=== PATIENT | male | born 1960 | race Caucasian/White ===

== ENCOUNTER 2023-08-31 19:10 | Emergency (ER) | payer BC, SELFPAY ==
[2023-08-31 19:17] VITALS: BP 152/101; PULSE 77; TEMP 36.8; O2SAT 99; BMI 22.6
--- NOTE | 2023-08-31 19:30 | CT_ITS ---
The [address] [address] Patient Name: JESÚS COYLE MRN: [id number] date: 1960 Sex: M Assigned Patient Location: ER Current Patient Location: ER Accession/Order Number: [id number] Exam Date: 08/31/2023 20:30 Report Date: 08/31/2023 21:20 At the request of: VIRAL MENDEZ Procedure: CT abdomen pelvis w con EXAM: CT abdomen pelvis w con HISTORY: Incarcerated hernia COMPARISON: None. TECHNIQUE: Multiple axial images of the abdomen and pelvis are obtained following the administration of IV contrast material. Coronal and sagittal reformatted sequences are submitted for review FINDINGS: Posterior right lung base atelectasis versus small infiltrate is seen. The heart size is normal. The liver, gallbladder, spleen, pancreas and bilateral adrenal glands appear unremarkable. Low densities are seen in the kidneys bilaterally, which are too small to definitively characterize on this examination, but which CT appearance can be seen with cystic structures. Bilateral kidneys otherwise demonstrate normal size, morphology and contrast enhancement. There is no evidence for hydronephrosis bilaterally. Left inguinal hernia is seen with herniation of the proximal sigmoid colon, as well as small volume of mesenteric fat. Nonobstructive bowel pattern is seen. Normal-appearing appendix is visualized. Large volume of stool is seen in the colon. No significant bowel wall thickening is seen. Mild wall thickening with mucosal enhancement of the distal gastric body is suspected, which may represent mild gastritis. Please correlate clinically. The vascular structures demonstrate normal caliber and contrast enhancement. Aortic and iliac arterial calcification is seen without aneurysmal dilatation. The prostate gland measures approximately 4 cm and 5.1 cm in AP and transverse diameter, respectively. Left hydrocele may be seen. This finding can be better evaluated with a scrotal ultrasound, as clinically indicated. No destructive osseous lesion is seen. CT/CT abdomen pelvis w con IMPRESSION: Left inguinal hernia is seen with herniation of the proximal sigmoid colon, as well as small volume of mesenteric fat. There is no CT evidence for bowel obstruction. No significant bowel wall thickening is seen. No significant stranding of the herniated mesenteric fat is seen. However, clinical correlation and possible follow-up imaging may be considered. Mild wall thickening with mucosal enhancement of the distal gastric body is suspected, which may represent mild gastritis. Please correlate clinically. Posterior right lung base atelectasis versus small infiltrate. Left hydrocele may be seen. This finding can be better evaluated with a scrotal ultrasound, as clinically indicated. Electronically authenticated by: KEVIN BURGOS Date: 08/31/2023 21:20
--- NOTE | 2023-08-31 19:31 | ED_ITS ---
HPI - Abdominal Pain General Chief Complaint: Abdominal Pain Stated Complaint: HERNIA Time Seen by Provider: 08/31/23 19:13 Source: patient Mode of arrival: walk-in Limitations: no limitations History of Present Illness HPI narrative: 62-year-old male presents to the emergency department for hernia that will not go back in place. He has had this left inguinal hernia for about a year and has not had it looked at by his surgeon. In the past he has always been able to push it back in place but this time it has been out for 3 days. No fever or vomiting. The pain is moderate and continuous. Related Data Home Medications ?Medication ?Instructions ?Recorded ?Confirmed loratadine 10 mg tablet (Allergy 10 mg PO DAILY 08/31/23 08/31/23 Relief (loratadine)) Allergies Allergy/AdvReac Type Severity Reaction Status Date / Time bee pollen Allergy Intermediate swelling Verified 08/31/23 19:21 Review of Systems ROS Narrative A ten point review of systems is negative except as noted above. Exam Narrative Exam Narrative: Nurses note and vital signs reviewed and patient is not hypoxic. General: The patient appears well and in no apparent distress. Patient is resting comfortably on cart. Skin: Warm, dry, no pallor noted. There is no rash noted. Head: Normocephalic, atraumatic Eye: Normal conjunctiva, no drainage Ears, Nose, Mouth, and Throat: oral mucosa is moist. Nares patent. Cardiovascular: Regular Rate and Rhythm Respiratory: Patient is in no distress, no accessory muscle use, lungs are clear to auscultation, no wheezing, rales or rhonchi Back: non-tender GI: Left inguinal hernia is present. Gentle palpation does not result in reduction. The rest of his abdomen is nontender and nondistended Musculoskeletal: The patient has no evidence of calf tenderness, no pitting edema, symmetrical pulses noted bilaterally Neurological: A&O, normal speech Psychiatric: Cooperative Constitutional Vital Signs, click to edit/add: Last Vital Signs Temp 98.3 F 08/31/23 19:17 Pulse 77 08/31/23 19:17 Resp 18 08/31/23 19:17 BP 152/101 H 08/31/23 19:17 Pulse Ox 100 08/31/23 21:15 O2 Del Method Nasal Cannula 08/31/23 21:15 O2 Flow Rate 2 08/31/23 21:15 Course Vital Signs Vital signs: Vital Signs Temperature 98.3 F 08/31/23 19:17 Pulse Rate 77 08/31/23 19:17 Respiratory Rate 18 08/31/23 19:17 Blood Pressure 152/101 H 08/31/23 19:17 Pulse Oximetry 99 08/31/23 19:17 Oxygen Delivery Method Room Air 08/31/23 19:17 Temperature 98.3 F 08/31/23 19:17 Pulse Rate 77 08/31/23 19:17 Respiratory Rate 18 08/31/23 19:17 Blood Pressure 152/101 H 08/31/23 19:17 Pulse Oximetry 100 08/31/23 21:15 Oxygen Delivery Method Nasal Cannula 08/31/23 21:15 Oxygen Delivery Flow Rate 2 08/31/23 21:15 MDM - Abdominal Pain MDM Narrative Medical decision making narrative: The patient presented with an incarcerated inguinal hernia, left side. It has been reduced and he will follow-up with general surgery. Findings are discussed with the patient and his . There is no evidence of strangulation. The following procedure was performed by me. The patient was given IV etomidate for sedation which resulted in an excellent level of sedation. He was maintained on oxygen and CO2 monitor and had no desaturations or significant change in his CO2. There were no complications. During conscious sedation manual pressure was utilized to reduce the incarcerated hernia, successfully. He feels much better after waking up and he is fully awake and alert and oriented. He is now ambulatory and able to be discharged home. The patient will follow-up with Dr. Salcido. Differential Diagnosis Differential diagnosis: Likely abdominal pain, small bowel obstruction and other (Incarcerated hernia, strangulated hernia) Lab Data Attestation: I reviewed the patient's lab results. Labs: Lab Results 08/31/23 Range/Units 19:40 WBC 10.9 (4.0-11.0) 10^3/uL RBC 4.68 L (4.70-6.10) 10^6/uL Hgb 14.9 (14.0-18.0) g/dL Hct 46.0 (42.0-54.0) % MCV 98.3 H (80.0-94.0) fL MCH 31.8 (25.9-34.0) pg MCHC 32.4 (29.9-35.2) g/dL RDW 14.1 (11.0-15.0) % Plt Count 314 (150-450) 10^3/uL MPV 10.2 (9.5-13.5) fL Neut % (Auto) 66.8 (43.0-75.0) % Lymph % (Auto) 26.5 (20.5-60.0) % [place] % (Auto) 4.5 (1.7-12.0) % Eos % (Auto) 1.3 (0.9-7.0) % Baso % (Auto) 0.7 (0.2-2.0) % Neut # (Auto) 7.3 H (1.4-6.5) 10^3/uL Lymph # (Auto) 2.9 (1.2-3.8) 10^3/uL [place] # (Auto) 0.5 (0.3-0.8) 10^3/uL Eos # (Auto) 0.1 (0.0-0.7) 10^3/uL Baso # (Auto) 0.1 (0.0-0.1) 10^3/uL Abs Immat Gran (auto) 0.02 (0.00-0.03) 10^3/uL Imm/Tot Granulo (auto) 0.2 (0.0-0.5) % Sodium 137 (136-145) mmol/L Potassium 3.8 (3.5-5.1) mmol/L Chloride 102 (98-107) mmol/L Carbon Dioxide 25.8 (21.0-32.0) mmol/L Anion Gap 13.0 BUN 11.0 (7.0-18.0) mg/dL Creatinine 0.91 (0.70-1.30) mg/dL Est GFR ( Amer) >60 (>=60) Est GFR (Non-Af Amer) >60 (>=60) BUN/Creatinine Ratio 12.1 Glucose 135 H (74-106) mg/dL Lactate 1.5 (0.4-2.0) mmol/L Calcium 9.0 (8.5-10.1) mg/dL Imaging Data CT scan - abdomen: Radiologist's impression: ITS Impressions Abdomen/Pelvis CT 08/31/23 19:30 IMPRESSION: Left inguinal hernia is seen with herniation of the proximal sigmoid colon, as well as small volume of mesenteric fat. There is no CT evidence for bowel obstruction. No significant bowel wall thickening is seen. No significant stranding of the herniated mesenteric fat is seen. However, clinical correlation and possible follow-up imaging may be considered. Mild wall thickening with mucosal enhancement of the distal gastric body is suspected, which may represent mild gastritis. Please correlate clinically. Posterior right lung base atelectasis versus small infiltrate. Left hydrocele may be seen. This finding can be better evaluated with a scrotal ultrasound, as clinically indicated. Electronically authenticated by: KEVIN BURGOS Date: 08/31/2023 21:20 Discharge Plan Discharge Stand Alone Forms: Portal Instructions Chief Complaint: Abdominal Pain Clinical Impression: Incarcerated inguinal hernia Patient Disposition: Home, Self-Care Time of Disposition Decision: 21:38 Condition: Good Mode of Transportation: Private Vehicle Prescriptions / Home Meds: No Action loratadine [Allergy Relief (loratadine)] 10 mg tablet 10 mg PO DAILY Print Language: Guamanian Instructions: Inguinal Hernia (ED), Moderate Sedation (ED) Referrals: Physician,Non-Staff, [Primary Care Provider] - 1 week Josafat Salcido MD [Physician] - 1 week
[2023-08-31 19:37] VITALS: PULSE 77
[2023-08-31 19:49] LABS: Basophils Absolute Auto 0.1 10^3/uL (0.0-0.1); Basophils Percent Auto 0.7 % (0.2-2.0); Eosinophils Absolute Auto 0.1 10^3/uL (0.0-0.7); Eosinophils Percent Auto 1.3 % (0.9-7.0); Hemoglobin 14.9 g/dL (14.0-18.0); Immature Granulocytes Abs Auto 0.02 10^3/uL (0.00-0.03); Immature Granulocytes Pct Auto 0.2 % (0.0-0.5); Lymphocytes Absolute Auto 2.9 10^3/uL (1.2-3.8); Lymphocytes Percent Auto 26.5 % (20.5-60.0); Mean Corpuscular HGB Conc 32.4 g/dL (29.9-35.2); Mean Corpuscular Hemoglobin 31.8 pg (25.9-34.0); Mean Corpuscular Volume 98.3 fL (80.0-94.0); Mean Platelet Volume 10.2 fL (9.5-13.5); Monocytes Absolute Auto 0.5 10^3/uL (0.3-0.8); Monocytes Percent Auto 4.5 % (1.7-12.0); Neutrophils Absolute Auto 7.3 10^3/uL (1.4-6.5); Neutrophils Percent Auto 66.8 % (43.0-75.0); Platelet Count 314 10^3/uL (150-450); Red Blood Count 4.68 10^6/uL (4.70-6.10); Red Cell Distribution Width 14.1 % (11.0-15.0); White Blood Count 10.9 10^3/uL (4.0-11.0)
[2023-08-31 20:07] LABS: Lactate/Lactic Acid 1.5 mmol/L (0.4-2.0)
[2023-08-31 20:10] LABS: BUN Creatinine Ratio 12.1; Carbon Dioxide 25.8 mmol/L (21.0-32.0); Chloride 102 mmol/L (98-107); Estimated GFR (African America >60 (>=60); Estimated GFR (Non-African Ame >60 (>=60); Glucose 135 mg/dL (74-106); Potassium 3.8 mmol/L (3.5-5.1); Sodium 137 mmol/L (136-145)
[2023-08-31 21:10] VITALS: BP 181/87; PULSE 77; O2SAT 100
[2023-08-31 21:15] VITALS: O2SAT 100
[2023-08-31] MEDS: ETOMIDATE 20 MG/10 ML VIAL IVP (21:26)
[2023-08-31 21:40] VITALS: BP 180/90; PULSE 87; O2SAT 96
== END 2023-08-31 21:58 | disposition home or self-care (01) ==
PROVIDERS: Emergency Provider Emergency Medicine
DX: K40.30 Unilateral inguinal hernia, with obstruction, without gangrene, not specified as recurrent (principal)
CPT/HCPCS: 36415; 74177; 80048; 83605; 85025; 96374; 99152; 99285; Q9967

== ENCOUNTER 2023-10-08 14:05 | Outpatient (OUT) | payer BC, SELFPAY ==
--- NOTE | 2023-10-08 14:23 | ECG_ITS ---
The [facility] Test Date: 2023-10-08 Pat Name: JESÚS COYLE Department: Room: - Gender: Male Translator: : 1960 Requested By: ALANA BERMUDEZ Order Number: [id number] Reading MD: RENATA WAGGONER Measurements Intervals [place] Rate: 72 P: 61 CO: 134 QRS: 57 QRSD: 105 T: 57 QT: 375 QTc: 411 Interpretive Statements SINUS RHYTHM INCOMPLETE RIGHT BUNDLE BRANCH BLOCK [90+ ms QRS DURATION, TERMINAL R IN V1/V2, 40+ ms S IN I/aVL/V4/V5/V6] No previous ECG available for comparison Electronically Signed On 10-08-2023 22:08:13 EDT by RENATA WAGGONER
--- NOTE | 2023-10-08 14:52 | P.GSHP_ITS ---
History of Present Illness History of Present Illness Chief complaint: left inguinal hernia Narrative: Patient presents for preadmission testing. The patient states he has had a left-sided inguinal hernia for over a year which he has been able to reduce at home on his own, but on August 30 he reported to the ER because he could not reduce the hernia and he was having increased pain. The hernia was reduced in the emergency department and the patient was sent for evaluation with Dr. Salcido who is now planning an inguinal hernia repair. The patient states he has not had any issues since his ER visit. He denies nausea, vomiting, fever, bowel changes, or any other complaints. Review of Systems ROS Narrative REVIEW OF SYSTEMS: Negative except as stated in HPI, ten or more systems reviewed. Constitutional: No fever, chills, weakness ENT: No sore throat or epistaxis Cardiovascular: No edema, chest pain, palpitations, or activity intolerance Respiratory: No shortness of breath, cough, or wheezing Musculoskeletal: No joint pain or swelling Gastrointestinal: No abdominal pain, constipation, diarrhea, or vomiting Genitourinary: No dysuria or hematuria Neurological: No numbness, tingling, weakness, or headache Psychiatric: No mood changes PFSH PFS Medical History (Updated 10/08/23 @ 14:41 by Apryl Browning NP) Back pain ?M54.9 - Dorsalgia, unspecified (ICD-10) Arthritis ?M19.90 - Unspecified osteoarthritis, unspecified site (ICD-10) Seasonal allergies ?J30.2 - Other seasonal allergic rhinitis (ICD-10) Heartburn ?R12 - Heartburn (ICD-10) Elevated blood pressure reading without diagnosis of hypertension ?R03.0 - Elevated blood-pressure reading, without diagnosis of hypertension (ICD-10) Left inguinal hernia ?K40.90 - Unilateral inguinal hernia, without obstruction or gangrene, not specified as recurrent (ICD-10) Surgical History (Updated 10/08/23 @ 14:38 by Apryl Browning NP) H/O colonoscopy ?Z98.890 - Other specified postprocedural states (ICD-10) Family History (Updated 10/08/23 @ 14:41 by Apryl Browning NP) Other Cancer Family history of diabetes mellitus Family history of hypertension Social History (Updated 10/08/23 @ 14:37 by Apryl Browning, NAUTICAL INSTRUMENT MECHANIC) Within the past year, how often did you have a drink containing alcohol: never Score interpretation: A score less than 4 is consistent with normal alcohol consumption. Smoking status: Current every day smoker What tobacco products do you use: cigarettes Packs per day: 1 Years smoked: 45 Smoking pack-years: 45.00 Non-prescribed substance use: denies use Previous occupational history: HVAC Highest level of school completed/degree received: Associate degree: occupational, technical, vocational program Meds Home Medications and Allergies Home Medications ?Medication ?Instructions ?Recorded ?Confirmed ?Type loratadine 10 mg tablet (Allergy 10 mg PO DAILY 08/31/23 10/08/23 History Relief (loratadine)) ascorbic acid (vitamin C) 1,000 mg 1 g PO DAILY 10/08/23 10/08/23 History capsule Allergies Allergy/AdvReac Type Severity Reaction Status Date / Time bee pollen Allergy Intermediate swelling Verified 08/31/23 19:21 bee venom protein (honey bee) Allergy swelling Verified 10/08/23 14:34 Exam Narrative Exam Narrative: Constitutional: Awake, alert, comfortable, well-appearing, nontoxic, interactive , vital signs as charted Head: Normocephalic, atraumatic Neck: Supple, normal appearance, normal range of motion, no meningeal signs, no lymphadenopathy Respiratory: No respiratory distress, breath sounds clear Cardiovascular: Regular rate and rhythm, strong and regular heart tones Abdomen: Nontender, normal bowel sounds, soft, no CVA tenderness Musculoskeletal: Normal gait, no swelling or edema Skin: No rashes or induration, no lesions, only visible skin inspected Neuro: No neurological deficits, normal sensation Psychiatric: Oriented ?3, normal affect Assessment and Plan Assessment and Plan (1) Left inguinal hernia: Plan Left inguinal hernia repair with mesh scheduled with Dr. Salcido October 22, 2023.
== END 2023-10-08 14:06 | disposition home or self-care (01) ==
LOC: PST 14:07
PROVIDERS: Visit Provider Surgery
DX: Z01.810 Encounter for preprocedural cardiovascular examination (principal); Z01.818 Encounter for other preprocedural examination; K40.90 Unilateral inguinal hernia, without obstruction or gangrene, not specified as recurrent
CPT/HCPCS: 93005; G0463

== ENCOUNTER 2023-10-22 07:58 | Day surgery (SDC) | payer BC, SELFPAY ==
[2023-10-08 14:44] VITALS: BP 121/85; PULSE 85; TEMP 36.4; O2SAT 99; BMI 23.0
[2023-10-22] VITALS (12 sets, daily range): BP systolic 113–154; BP diastolic 76–103; PULSE 70–82; TEMP 36.2–37.2; O2SAT 93–98; BMI 22.0
--- NOTE | 2023-10-22 | OP_ITS ---
OPERATION DATE: 10/22/2023 PREOPERATIVE DIAGNOSIS: Indirect left inguinal hernia as well as scarring of the cremasteric fibers. POSTOPERATIVE DIAGNOSIS: Indirect left inguinal hernia as well as scarring of the cremasteric fibers. PROCEDURE: Left inguinal herniorrhaphy with Bard polypropylene mesh insertion 5 x 10 cm. SURGEON: Josafat Salcido M.D. ANESTHESIA: General anesthesia as well as left sided TAP block by Dr. Zimmerman. INDICATIONS AND CONSENT: Patient is a 62-year-old male with history of an enlarging, symptomatic, reducible left inguinal hernia. Indications, risks, benefits, alternatives of proceeding with herniorrhaphy were explained extensively to the patient, including the risks of bleeding, infection, scarring, pain, recurrence, nerve injury, testicular injury, blood clot, pulmonary embolus, heart attack, anesthetic complications, need for further surgery or mesh removal. All of his questions were answered. Informed consent was obtained. PROCEDURE: Patient brought to the operating room, placed in the supine position. General anesthesia was induced. Left sided TAP block had been performed by Dr. Zimmerman. Patient was prepped and draped in the usual sterile fashion. A left groin incision was made in the area of the skin crease and carried down through subcutaneous tissue using sharp dissection. Bolivar?s fascia was divided. The external oblique which was attenuated was opened along the direction of its fibers, down through the external inguinal ring. There was noted to be scarring at the external ring with fibrosis and scarring of the cremasteric fibers in this area. This was carefully freed up. The cord structures were mobilized and retracted with a [place] drain. There was noted to be an indirect sac that was freed up, up to the internal ring and reduced, as well as a small cord lipoma that was also reduced. There was no weakness within the floor of the inguinal canal or direct inguinal hernia. Patient was noted to have a hydrocele, which was non-communicating and this was not addressed. The wound was irrigated with antibiotic saline. There was good hemostasis. The Bard 5 x 10 cm mesh was trimmed and a keyhole was created. It was then placed in the floor of the inguinal canal. It should be noted that the enlarged internal ring, prior to that, was closed partially with interrupted 2-0 Prolene sutures. The arms of the mesh were placed around the cord structures. The mesh was then secured circumferentially using interrupted 3-0 Vicryl sutures. There was good hemostasis. There was no undue tension on the cord structures. The wound was irrigated once again with antibiotic saline. There was good hemostasis. The external oblique was then closed with a running 3-0 Vicryl suture. The remaining Exparel solution was injected into the subcutaneous tissue. Bolivar?s fascia was then re-approximated using interrupted 3-0 Monocryl suture. The skin was then closed with a running 4-0 subcuticular Monocryl suture and skin glue. Sterile pressure dressing was applied. Sponge and needle counts were correct x2 per nursing personnel. Patient tolerated procedure well, was sent to recovery room in good condition. CC: Patient?s family physician FLOR
--- OUTSIDE RECORDS SUMMARY | 2023-10-22 08:19 | XMS_ITS | CCD ---
Author Organization [facility] Care Team Providers Care Ob Nurse Name Role Phone MARKER, JUSTINA Unavailable Unavailable MARKER, JUSTINA Unavailable Unavailable REQUEST, NONE LISTED Unavailable Unavailable MARKER, JUSTINA Unavailable Unavailable Josafat SALCIDO Attending Unavailable NONE, XXXX Primary Care Physician Unavailab ARLEEN Webb Attending Unavailable Allergies Allergy Classification Reported Allergen(s) Allergy Type Date of Onset Reaction(s) Facility (2 sources) Bee/Wasp/Ant venom; Translations: [Bee Stings] Propensity to adverse reactions (disorder) Patient reported problems (finding) [facility] Repository (1 source) No Known Medication Allergies; Translations: [No Known Medication Allergies] Propensity to adverse reactions (disorder) [facility] Repository (1 source) BEE VENOM PROTEIN (HONEY BEE); Translations: [BEE VENOM PROTEIN (HONEY BEE)] Propensity to adverse reactions to drug (disorder) [facility] Repository NEGATED: Highlighted row has been ruled out! (1 source) Drug allergy [facility] Problems Active Problems Problem Classification Problem Date Documented Da te Episodic/Chronic Abdominal hernia (2 sources) Inguinal hernia; Translations: [Unilateral inguinal hernia, without obstruction or gangrene, not specified as recurrent] Onset: 09-05-2023 Episodic Essential hypertension (4 sources) Essential hypertension; Translations: [Essential (primary) hypertension] Onset: 09-05-2023 Chronic Residual codes; unclassified (1 source) Tobacco user; Translations: [Tobacco use] Onset: 09-05-2023 Episodic Screening and history of mental health and substance abuse codes (1 source) Tobacco use and exposure - finding 09-05-2023 Chronic Substance-related disorders (3 sources) Tobacco dependence syndrome; Translations: [Nicotine dependence, unspecified, uncomplicated] Onset: 10-13-2023 09-05-2023 Chronic Past or Other Problems Problem Classification Problem Date Documented Da te Episodic/Chronic Anal and rectal conditions (3 sources) Other specified diseases of anus and rectum; Translations: [OTHER SPEC DISEASES ANUS AND RECTUM] Onset: 09-02-2016 Episodic Hemorrhoids (1 source) Residual hemorrhoidal skin tags; Translations: [RESIDUAL HEMORRHOIDAL SKIN TAGS] Onset: 09-05-2016 Episodic Results Test Name Value Interpretation Reference Range Facil ity Office Visiton 10-13-2023 Follow-up visit [id number] Zach Coyle Jr. 1960 M Date Provider Department Center 10/13/2023 [id number] [facility] Family History Problem Relation Age of Onset No Known Problems Mother No Known Problems Father Family Status - Relation Status Age at Mother Father Level of Service:31177 NE OFFICE/OUTPATIENT NEW MODERATE MDM 45 MINUTES Reason for Visit and Comments: New Patient [632] - Pt is a new patient, and is here for surgery clearance, had EKG last week. [facility] Ambulatory Visit Summaryon 0 09-05-2023 Ambulatory Visit Summary Ambulatory Visit Summary ZACH COYLE JR :1960 Visit Date:09/05/2023 Ambulatory Visit Instructions Your Care Team Attending Physician - LARA QUEZADA, Josafat Nichols Primary Care Physician - NONE, XXXX Procedures Performed Colonoscopy. Discharge Vitals Heart Rate (Peripheral) 73 Respiratory Rate 16 Blood Pressure 165/82 Height 167 cm Height 66 in Weight 63.7 kg Weight 140.14 lb BMI 22.84 Allergies Bee Stings (Patient reported problems) No Known Medication Allergies Problems Ongoing - Any problem that you are currently receiving treatment for. Tobacco dependence Patient Survey You may receive a survey via text or e-mail asking about your office visit. Please share your experience with us by completing your survey. We appreciate your feedback and thank you for choosing us for your care. [facility] Vital Signs Date Time Vital Sign Value Performing Clinician Dinah villanueva 09-05-2023 13:07-0400 Blood Pressure Location Josafat SALCIDO [facility] 09-05-2023 13:07-0400 Diastolic blood pressure 82 mm[Hg] Josafat PASTRANAL [facility] 09-05-2023 13:07-0400 Heart rate 73 /min Josafat PASTRANAL [facility] 09-05-2023 13:07-0400 Respiratory rate 16 /min Josafat PASTRANAL [facility] 09-05-2023 13:07-0400 Systolic blood pressure 165 mm[Hg] Josafat PASTRANAL [facility] Encounters Encounter Date Encounter Type Care Provider Facility Start: 10-13-2023 End: 10-13-2023 ambulatory [facility] Start: 10-13-2023 End: 10-13-2023 Encounter for other preprocedural examination [facility] Start: 09-05-2023 End: 09-05-2023 ambulatory Josafat SALCIDO Facility: [facility] Start: 09-05-2023 End: 09-05-2023 Patient encounter procedure Josafat PASTRANAL [facility] Start: 09-01-2023 ambulatory Josafat PASTRANAL [facility] Start: 09-02-2016 End: 09-02-2016 Ambulatory JUSTINA MARKER Facility:[facility] Procedures Date Procedure Procedure Detail Performing Clinician Colonoscopy Josafat SALCIDO Payers Date Payer Category Payer Unknown [id number] 1960 Unknown [id number] 1959 Unknown [id number] Social History Date Type Detail Facility Start: 09-05-2023 Tobacco smoking status Heavy t obacco smoker (finding) [facility] Tobacco smoking status Never Awais [facility] Sex Assigned At Male [facility] Functional Status Date Assessment Result Facility 09-05-2023 Functional Status N/A [facility] Progress note 10-13-2023 Note Date & Type Note Facility 10-13-2023 Note [facility] Note Reason for cardiology consult: Cardiac clearance for left inguinal hernia repair by Dr. Salcido Chief Complaint: No complaint except for the left inguinal pain at the hernia site HPI: Zach Coyle Jr. is a 62 y.o. male without prior cardiac history. Denies history of hypertension, hyperlipidemia, or diabetes mellitus. He does not see a physician on a regular basis. He is a smoker 1 pack/day since he was 16-year-old. Denies alcohol or illicit drugs. He denies family history of coronary artery disease. He is currently on no medications He was referred here for cardiac clearance because of abnormality on EKG. He is physically very active and he works in heating and air conditioning. He denies any chest discomfort or shortness of breath at rest or with exertion. Denies orthopnea or paroxysmal nocturnal dyspnea. Denies dizziness or near syncope or syncope. He denies legs edema or leg discomfort on exertion. He checks his blood pressure at home and regular basis. He showed me the measurements over the last couple months and they are within normal limits. Cardiology ROS: GENERAL: Denies fever, chills, night sweats, weight loss. HEENT: Denies changes in vision, photophobia, changes in hearing, epistaxis, oral bleeding. CARDIOVASCULAR: Denies chest pain, exertional dyspnea, orthopnea/PND, lower extremity edema, palpitations, lightheadedness/dizziness. RESPIRATORY: Denies SOB, coughing, wheezing GI: Denies abdominal pain, nausea/vomiting, heartburn, melena/hematochezia. RENAL: Denies dysuria, hematuria, flank pain. MSK: Denies muscle weakness/pain, arthralgias/joint pain. NEUROLOGIC: Denies LOC, weakness, numbness, headaches. SKIN: Denies abnormal rashes or bleeding. PSYCH: Denies significant anxiety, depression, sleep disturbances. Past Medical History He has no past medical history on file. Surgical History He has no past surgical history on file. Social History He reports that he has been smoking cigarettes. He has been smoking an average of 1 pack per day. He has never used smokeless tobacco. He reports that he does not drink alcohol. No history on file for drug use. Family History Family History Problem Relation Name Age of Onset No Known Problems Mother No Known Problems Father Allergies Bee venom protein (honey bee) Medications No current outpatient medications on file. Last Recorded Vitals Visit Vitals BP (!) 121/96 (BP Location: Left arm, Patient Position: Sitting) Pulse 66 Ht 1.676 m (5' 6 ) Wt 63.5 kg (140 lb) SpO2 98% BMI 22.60 kg/m??? Smoking Status Every Day BSA 1.72 m??? Physical Examination: GENERAL: alert and oriented x3, well developed, in no acute distress. HEAD: atraumatic, normocephalic. EYES: LUIS, EOMI. NECK: trachea midline, no JVD present, no carotid bruits present. CARDIAC: S1, S2 present. RRR. No murmur, rubs, or gallops. RESPIRATORY: CTAB, no increased effort of breathing, no rales, rhonchi, or wheezing. ABDOMEN: soft, nontender, nondistended. EXTREMITIES: no lower extremity edema, peripheral pulses are 2+ bilaterally. No rash/skin discoloration present. NEURO: strength/sensation equal and symmetric in bilateral upper and lower extremities. PSYCH: appropriate mood, affect, and judgement. Labs: Labs 08/31/2023 White blood count 10.9, hemoglobin 14.9, platelets 314 Sodium 137, potassium 3.8, BUN 11, creatinine 0.91, GFR above 60, glucose 135, calcium 9 Last Images: EKG 10/08/2023 showed normal sinus rhythm, incomplete right bundle branch block, normal EKG CT of abdomen and pelvis 08/31/2023 Assessment and Plan: Cardiac clearance for left inguinal hernia repair Reported abnormal EKG showing incomplete right bundle branch block which is a normal variant Tobacco abuse, 1 pack/day since he was 16-year-old Diastolic hypertension on exam today however patient's home blood pressure the last couple months are within normal limits. Plan: The patient is stable cardiac khan. He does not have any symptoms of angina or congestive heart failure. His EKG is normal, the incomplete right bundle branch block is a normal variant. No indication for any further cardiac testing at this point. I think the patient may proceed with surgery from cardiac point of view with necessary anesthesia. He is considered to be at low risk for perioperative cardiac events. The patient was advised to continue to monitor his blood pressure The patient was highly advised to quit smoking to improve his long-term prognosis I will obtain fasting lipids The patient was advised regarding the importance of following with PCP on regular basis. No need for cardiology follow-up at this point Arleen Tobin MD, [facility] Clinical Note 09-05-2023 Note Date & Type Note Facility 09-05-2023 Note General Surgery Offi ce/Clinic Note Chief Complaint consultation for hernia HPI Staff 62 year old male presents on follow up from [facility] for left inguinal hernia. Patient presented to ED 08/31/23 with complaint of nonreducible hernia. Reports noting hernia for approximately 1 year. Patient had been able to reduce hernia previously but bulge was not able to be reduced for 3 days leading to ED evaluation. CT abdomen/pelvis with fat and bowel containing hernia. Hernia was reduced prior to discharge. Reports he is currently back to baseline. Bulge is small and reducible. Denies pain or discomfort. Denies nausea, vomiting or bowel changes. History of Present Illness 62 yo male with 1 year h/o left inguinal hernia, seen in [facility] ED 08/31/23 because he was unable to reduce hernia for 3 days; abd/pelvic ct scan with left inguinal hernia containing portion of non-obstructed sigmoid colon and fat; hernia reduced after sedation; hernia now reducible, denies pain, no skin changes, no N/V or bowel changes; no abd operations; no medical problems, but has seen a doctor for many years; denies asa or NSAID use; smokes 1 ppd. Review of Systems PHQ Score Initial Depression Screen Score: 0 SCORE ROS - Provider Constitutional: no fever, no sweats, no weight loss. Eyes: no glasses, no blurred vision, no visual loss. ENMT: no dentures, no hoarseness, no swallowing difficulties, no hearing loss, no ear infection(s), no nose bleeds. Cardiovascular: normal blood pressure, no chest pain, regular heartbeat, no heart murmur. Respiratory: no shortness of breath, no cough, no asthma, no wheezing. Gastrointestinal: no nausea, no vomiting, no diarrhea, no constipation, no blood in stool, no change in bowel habits, no abdominal pain, no hepatitis. Genitourinary: no kidney stones, no urine infection, no dysuria. Musculoskeletal: no pain, no weakness. Skin: no changing moles, no rash, no skin lumps. Neurologic: no seizures, no epilepsy, no headache. Psychiatric: no emotional or psychiatric problem. Heme/Lymph: no bleeding problems, no anemia, no blood clots, no transfusions. Allergy/Immunologic: no swollen lymph nodes/glands, no IV drug abuse. Other: Additional ROS info: Except as noted in the above Review of Systems and in the History of Present Illness, all other systems have been reviewed and are negative or noncontributory. Physical Exam Vitals & Measurements HR: 73(Peripheral) RR: 16 BP: 165/82 HT: 66 in HT: 167 cm WT: 63.7 kg WT: 140.14 lb BMI: 22.84 HEENT: normal conjunctiva, sclera clear, no scleral icterus, EOM intact, PERRLA, oral mucosa moist without lesions. Neck: trachea midline, no mass, symmetric, no thyromegaly or nodules, no adenopathy Respiratory: lungs CTA, respirations non labored. Cardiovascular: regular rate and rhythm, no murmur, no pedal edema or varicosities. Gastrointestinal: soft, non distended, no tenderness, no masses, reducible left inguinal hernia, nontender, no skin changes; diastasis recti no, no hepatosplenomegaly; normal bs Lymphatic: no cervical adenopathy, no supraclavicular adenopathy no femoral adenopathy Musculoskeletal: normal gait, digits and nails without infection, nodes, cyanosis, clubbing. Skin: no rashes, no lesions, no ulcers, no subcutaneous nodules, induration. Psychiatric/Neuro: oriented to time, place, person, judgement normal, affect appropriate for age, insight intact, no focal deficits. Tests: labs reviewed, x-rays reviewed, review of old records completed , Discussed surgical options, risks, and possible complications with patient. Assessment/Plan 1. Reducible left inguinal hernia (K40.90: Unilateral inguinal hernia, without obstruction or gangrene, not specified as recurrent) plan left inguinal herniorrhaphy with mesh insertion, informed consent obtained. patient to have evaluation by his family doctor for treatment of his hypertension; signs/symptoms of incarceration/strangulation of hernia explained in detail, and patient understands that he should seek prompt medical evaluation if they were to occur. Patient instructed to decrease, or ideally quit, tobacco use in the perioperative period to minimize lung and wound complications, as well as risk of recurrent hernia. Ancef 2 gms IV prior to OR TAP block per anesthesia SCDs 2. Tobacco use (Z72.0: Tobacco use) We strongly recommend to quit tobacco use. Cigarette smoking harms nearly every organ of the body, causes many diseases, and reduces the health of smokers in general. Quitting smoking lowers your risk for smoking-related diseases and can add years to your life. We encourage you to visit www.smokefree.gov access to helpful resources including free telephone support. If you decide on prescription treatment to help you quit, your family doctor would be happy to provide these. 3. Hypertension (I10: Essential (primary) hypertension) patient to have evaluation by family doctor. Follow-up No qualifying data available Problem List/ (more content not included)... [facility] Comment on above: Result Comment: Elec tronically Signed By: LARA QUEZADA, Josafat [email or web address]\Date and Time Signed: 09/05/23 13:57 EDT Evaluation + Plan note Note Date & Type Note Facility Evaluation + Plan note No data available for this section [facility] Discharge instructions Note Date & Type Note Facility Hospital Discharge instructions No data available for this section [facility] Progress note Note Date & Type Note Facility Progress note No data available for this section [facility] Summary Purpose Family History No Family History Records FoundNo Family History Records Found No data available for this section No Family History Records Found Advance Directives No Advanced Directives Records FoundNo Advanced Directives Records FoundNo Advanced Directives Records Found Additional Source Comments (unrecognized sect ion and content) No Status Records FoundNo Status Records FoundNo Status Records Found INFORMATION SOURCE (unrecogn ized section and content) DATE CREATED AUTHOR 08/20/2017 Patricio Boyle [facility] DATE CREATED AUTHOR AUTHOR'S ORGANIZ ATION 09/09/2023 [facility] DATE CREATED AUTHOR AUTHOR'S ORGANIZ ATION 10/14/2023 [facility] FOR RECORDS PERTAINING TO PATIENTS WHO ARE OR HAVE BEEN ENROLLED IN A CHEMICAL DEPENDENCY/SUBSTANCEABUSE PROGRAM, SOME INFORMATION MAY BE OMITTED. This clinical summary was aggregated from multiple sources. Caution should be exercised in using it in the provision of clinical care. This summary normalizes information from multiple sources, and as a consequence, information in this document may materially change the coding, format and clinical context of patient data. In addition, data may be omitted in some cases. CLINICAL DECISIONS SHOULD BE BASED ON THE PRIMARY CLINICAL RECORDS. [employer] provides no warranty or guarantee of the accuracy or completeness of information in this document.
[2023-10-22] MEDS: LACTATED RINGER'S SOLUTION 1,000 ML 50 ML IV ×2 (08:27→11:18)
[2023-10-22] MEDS: CEFAZOLIN SODIUM 2 GM/50 ML D5W PREMIX IV (10:45)
[2023-10-22] MEDS: BUPIVACAINE HCL 0.25% PF 25 MG/10 ML VIAL INJ (11:20)
[2023-10-22] MEDS: 0.9 % SODIUM CHLORIDE 10 ML INJ (12:37)
[2023-10-22] MEDS: CEFAZOLIN SODIUM 1,000 MG in 0.9 % SODIUM CHLORIDE 10 ML 10 MG IRR (12:37)
[2023-10-22] MEDS: OXYCODONE HCL/ACETAMINOPHEN 5MG/325MG 1 TAB PO (13:22)
--- NOTE | 2023-10-22 14:17 | PC.NURSE ---
1405: pt ambulates to bathroom with minimal assistance,pt voids without difficulty.
== END 2023-10-22 14:17 | disposition home or self-care (01) ==
PROVIDERS: Visit Provider Surgery
PROC: (CPT 00830; principal; 2023-10-22 09:10)
DX: K40.90 Unilateral inguinal hernia, without obstruction or gangrene, not specified as recurrent (principal); F17.210 Nicotine dependence, cigarettes, uncomplicated; I10 Essential (primary) hypertension; K21.9 Gastro-esophageal reflux disease without esophagitis
CPT/HCPCS: 00830; 49505; 64488; 88304; C1781; J0131; J0665; J0690; J1100; J1885; J2250; J2371; J2405; J2704; J3010

== ENCOUNTER 2024-03-29 23:47 | Emergency (ER) | payer BC, SELFPAY ==
[2024-03-29 23:52] VITALS: BP 93/75; PULSE 100; TEMP 36.8; O2SAT 96; BMI 23.3
--- OUTSIDE RECORDS SUMMARY | 2024-03-30 00:50 | XMS_ITS | CCD ---
Author Organization [facility] Care Team Providers Care Contact Agent Name Role Phone MARKER, JUSTINA Unavailable Unavailable MARKER, JUSTINA Unavailable Unavailable REQUEST, NONE LISTED Unavailable Unavailable MARKER, JUSTINA Unavailable Unavailable NONE, XXXX Primary Care Physician UnavailARLEEN Pozo Attending Unavailable Nill, MD Josafat Nichols Attending Provider [phone] Nill, Josafat Nichols Attending Unavailable Nill, Josafat Nichols Admitting Unavailable NILL, Josafat Nichols Attending Unavailable NILL, Josafat Nichols Attending Unavailable NILL, Josafat Nichols Attending Unavailable NILL, Josafat Nichols Attending Unavailable Allergies Allergy Classification Reported Allergen(s) Allergy Type Date of Onset Reaction(s) Facility (4 sources) Bee/Wasp/Ant venom; Translations: [Bee Stings] Propensity to adverse reactions to substance Patient reported problems (finding) [facility] (1 source) BEE VENOM PROTEIN (HONEY BEE); Translations: [BEE VENOM PROTEIN (HONEY BEE)] Propensity to adverse reactions to drug (disorder) [facility] Repository (1 source) No Known Medication Allergies; Translations: [No Known Medication Allergies] Propensity to adverse reactions (disorder) [facility] Repository NEGATED: Highlighted row has been ruled out! (1 source) Drug allergy [facility] NEGATED: Highlighted row has been ruled out! (1 source) Drug allergy [facility] NEGATED: Highlighted row has been ruled out! (1 source) Drug allergy [facility] Problems Active Problems Problem Classification Problem Date Documented Da te Episodic/Chronic Abdominal hernia (6 sources) Inguinal hernia; Translations: [Unilateral inguinal hernia, without obstruction or gangrene, not specified as recurrent] Onset: 09-05-2023 Episodic Essential hypertension (6 sources) Essential hypertension; Translations: [Essential (primary) hypertension] Onset: 09-05-2023 Chronic Residual codes; unclassified (1 source) Tobacco user; Translations: [Tobacco use] Onset: 09-05-2023 Episodic Screening and history of mental health and substance abuse codes (3 sources) Tobacco use and exposure - finding 09-05-2023 Chronic Substance-related disorders (5 sources) Tobacco dependence syndrome; Translations: [Nicotine dependence, [...] Name Value Interpretation Reference Range Facil ity Ambulatory Visit Summaryon 0 11-14-2023 Ambulatory Visit Summary Ambulatory Visit Summary JESÚS COYLE JR :1960 Visit Date:11/14/2023 Ambulatory Visit Instructions Your Care Team Attending Physician - LARA QUEZADA, Josafat Nichols Primary Care Physician - NONE, XXXX Procedures Performed Repair of left inguinal hernia (10/22/2023), Colonoscopy. Allergies Bee Stings (Patient reported problems) No Known Medication Allergies Problems Ongoing - Any problem that you are currently receiving treatment for. Hypertension Reducible left inguinal hernia Tobacco dependence Tobacco use Patient Survey You may receive a survey via text or e-mail asking about your office visit. Please share your experience with us by completing your survey. We appreciate your feedback and thank you for choosing us for your care. Ellen [facility] General Surgery Office/Clini c Noteon 11-14-2023 General Surgery Office/Clinic Note General Surgery Office/Clinic Note Chief Complaint post operative follow up HPI Staff 23 day post operative follow up post left inguinal hernia repair. Denies discomfort. Taking Ibuprofen 400mg BID for swelling. Denies bleeding or drainage. Bowels moving well. History of Present Illness 3 1/2 weeks s/p LIHR with mesh; doing well, denies pain, no drainage from incision; no strenuous activities. Review of Systems ROS - Provider Constitutional: no fever, no [...] and are negative or noncontributory. Physical Exam abd: incision without erythema or drainage, no ecchymosis; minimal induration. Assessment/Plan 1. Reducible left inguinal hernia (K40.90: Unilateral inguinal hernia, without obstruction or gangrene, not specified as recurrent) doing well, gradually resume regular activities next week; call with problems/questions. Follow-up With When Contact Information LARA QUEZADA, SARAH Ferrer Only if needed [address] [place] [address]- Additional Instructions: Problem List/Past Medical History Ongoing Hypertension Reducible left inguinal hernia Tobacco dependence Tobacco use Historical No qualifying data Procedure/Surgical History Repair of left inguinal hernia (10/22/2023), Colonoscopy. Medications No active medications Allergies Bee Stings (Patient reported problems) No Known Medication Allergies Social History Alcohol - Denies Alcohol Use, 09/05/2023 Substance Abuse - Denies Substance Abuse, 09/05/2023 Tobacco 10 or more cigarettes (1/2 pack or more)/day in last 30 days Tobacco Use:. Never Smokeless Tobacco Use:. Cigarettes, 1 per day. Started age 14.0 Years. Yes, 09/05/2023 Family History Diabetes mellitus type 2: Mother. Normal [facility] Comment on above: Result Comment: Elec tronically Signed By: LARA QUEZADA, Josafat [place]\Date and Time Signed: 11/14/23 13:12 EDT General Surgery Office/Clini c Noteon 10-31-2023 General Surgery Office/Clinic Note General Surgery Office/Clinic Note Chief Complaint post operative follow up HPI Staff 9 day post operative follow up post left inguinal hernia repair. Reports minimal intermittent discomfort. Scant use of Ibuprofen. Denies bleeding or drainage. Denies scrotal edema or bruising. Bowels moving well. History of Present Illness 9 days s/p LIHR with mesh for indirect inguinal hernia; doing well, mild soreness, controlled with ibuprofen; no drainage, no N/V; normal bms, voiding well; no heavy lifting. Review of Systems ROS - Provider Constitutional: no fever, no [...] and are negative or noncontributory. Physical Exam abd: soft, nontender, nondistended, incision with minimal induration; no erythema or drainage, no ecchymosis. Assessment/Plan 1. Reducible left inguinal hernia (K40.90: Unilateral inguinal hernia, without obstruction or gangrene, not specified as recurrent) doing well, continue no lifting > 10 lbs for 2 1/2 weeks; follow up in 2 weeks; ok to return to work next week on light duty; call sooner if problems/questions. Follow-up No qualifying data available Problem List/Past Medical History Ongoing Hypertension Reducible left inguinal hernia Tobacco dependence Tobacco use Historical No qualifying data Procedure/Surgical History Repair of left inguinal hernia (10/22/2023), Colonoscopy. Medications No active medications Allergies Bee Stings (Patient reported problems) No Known Medication Allergies Social History Alcohol - Denies Alcohol Use, 09/05/2023 Substance Abuse - Denies Substance Abuse, 09/05/2023 Tobacco 10 or more cigarettes (1/2 pack or more)/day in last 30 days Tobacco Use:. Never Smokeless Tobacco Use:. Cigarettes, 1 per day. Started age 14.0 Years. Yes, 09/05/2023 Family History Diabetes mellitus type 2: Mother. [facility] Comment on above: Result Comment: Elec tronically Signed By: LARA QUEZADA, Josafat Nichols\.br\Date and Time Signed: 10/31/23 13:56 EDT Provider Letteron 10-31-2023 Provider Letter Provider Letter October 31, 2023 JESÚS COYLE [address] [place] [id number] : 1960 To Whom It May Concern, The above named person may return to work 11/03/23 with a 10 pound weight restriction until 11/19/23. Sincerely, Dr. Josafat Salcido MD General Surgery [facility] Charli 10-22-2023 L Specimen: [id number] Received: 10/23/23 Status: DARRYL Ronquillo Num: [id number] Spec Type: Surgical Subm Dr: Josafat Salcido MD FACS Tissues: A Hernia Sac (LT ING ZANE) Procedures: HE, Gross/Micro L2 Age/ Patient Sex Location Account Attending Physician Jesús Coyle Jr 62/M LABELL [id number] Josafat Salcido MD FACS SPEC NUM: [id number] RECD: 10/23/23 STATUS: DARRYL RONQUILLO NUM: [id number] NOEL: 10/22/23-[address]: Josafat Salcido MD FACS ENTERED: 10/23/236 [facility] DR: Wayne Boyle SPEC TYPE: Surgical DEPT: [facility]IM [facility]ITH ENTERED BY: [id number] RECV BY: [id number] ORDERED: HE, Gross/Micro L2 ORDERED: HE, Gross/Micro L2 Pathological Diagnosis Left groin soft tissue content, repair excision: -Marked reactive thickening of the various fibrovascular and muscular portions of herniorrhaphy contents, compatible with sampling of the nonspecific scarred cremasteric tissue, otherwise without any significant chronic inflammation, stromal cell atypia, neoplastic degeneration, or secondary infection identified Clinical Information Left inguinal hernia Gross Description Specimen was received in formalin with the patient's name and scarred cremasteric is a irregular shaped portion of sorenson-pink fibrous soft tissue measuring 4.0 x 2.5 x 1.0 cm. The specimen is serially sectioned revealing unremarkable white-pink fibrous tissue. The specimen is entirely submitted in cassette A1 Microscopic Description Microscopic examinations are performed supporting the above interpretation -------- Specimen: [id number] Received: 10/23/23 Status: DARRYL Fieldtorrey Num: [id number] Spec Type: Surgical Subm Dr: Josafat Salcido MD FACS Tissues: A Hernia Sac (LT ING ZANE) Procedures: MARCELA Gross/Micro L2 -------- Patient: Jesús Coyle Jr [id number] (Continued) -------- Specimen: [id number] Received: 10/23/23 (Continued) Signed (signature on file) Antonio Christiansen MD 10/31/23 0949 -------- Specimen: [id number] Received: 10/23/23 Status: DARRYL Ronquillo Num: [id number] Spec Type: Surgical Subm Dr: Josafat Salcido MD FACS Tissues: A Hernia Sac (LT ING ZANE) Procedures: Lizett MEDRANO/Alessandra L2 -------- Patient: Jesús Coyle Jr [id number] (Continued) -------- Specimen: [id number] Received: 10/23/23 (Continued) CPT Codes 83847 -------- -------- Specimen: [id number] Received: 10/23/23 Status: DARRYL Ronquillo Num: [id number] Spec Type: Surgical Subm Dr: Josafat Salcido MD FACS Tissues: A Hernia Sac (LT ING ZANE) Procedures: Lizett MEDRANO/Alessandra L2 -------- Patient: Jesús Coyle Jr [id number] (Continued) -------- Signed (signature on file) Antonio Christiansen MD 10/31/23 0747 [facility] Office Visiton 10-13-2023 Follow-up visit [id number] LeonidesJairo Garcia Jr. 1960 M Date Provider Department Center 10/13/2023 [facility] Family History Problem Relation Age of Onset No Known Problems Mother No Known Problems Father Family Status - Relation Status Age at Mother Father Level of Service:12474 [place] OFFICE/OUTPATIENT NEW MODERATE MDM 45 MINUTES Reason for Visit and Comments: New Patient [632] - Pt is a new patient, and is here for surgery clearance, had EKG last week. Normal [facility] Ambulatory Visit Summaryon 0 09-05-2023 Ambulatory Visit Summary Ambulatory Visit Summary LEONIDES RAYJESÚS :1960 Visit Date:09/05/2023 Ambulatory Visit Instructions Your [...] you for choosing us for your care. Normal [facility] Vital Signs Date Time Vital Sign Value Performing Clinician Dinah villanueva 09-05-2023 13:07-0400 Blood Pressure Location Movea [facility] General Surgery [place] 09-05-2023 13:07-0400 Diastolic blood pressure 82 mm[Hg] Josafat SALCIDO [facility] Surgery [place] 09-05-2023 13:07-0400 Heart rate 73 /min Josafat SALCIDO [facility] Surgery [place] 09-05-2023 13:07-0400 Respiratory rate 16 /min Josafat SALCIDO [facility] 09-05-2023 13:07-0400 Systolic blood pressure 165 mm[Hg] Josafat PASTRANAL [facility] Encounters Encounter Date Encounter Type Care Provider Facility Start: 11-14-2023 End: 11-14-2023 ambulatory Josafat PASTRANAL Facility:[facility] Start: 11-14-2023 End: 11-14-2023 Patient encounter procedure Josafat R NILL [facility] Start: 10-31-2023 End: 10-31-2023 ambulatory Josafat R NILL Facility:[facility] Start: 10-31-2023 End: 10-31-2023 Patient encounter procedure Josafat Nichols NILL [facility] Start: 10-22-2023 End: 10-22-2023 ambulatory Josafat Salcido [facility] Work Phone: Start: 10-22-2023 End: 10-22-2023 Departed Referred MD Josafat Salcido Work Phone: [facility] Start: 10-22-2023 End: 10-22-2023 ambulatory Josafat SALCIDO Facility:[id number] Start: 10-13-2023 End: 10-13-2023 ambulatory [facility] Start: 10-13-2023 End: 10-13-2023 Encounter for other preprocedural examination [facility] Start: 09-05-2023 End: 09-05-2023 ambulatory Josafat R NILL Facility:[facility] Start: 09-05-2023 End: 09-05-2023 Patient encounter procedure Josafat PASTRANAL [facility] Start: 09-01-2023 ambulatory Josafat SALCIDO Facility:[facility] [place] Start: 09-02-2016 End: 09-02-2016 Ambulatory JUSTINA MARKER Facility:[facility] Procedures Date Procedure Procedure Detail Performing Clinician Start: 10-22-2023 Repair of left ingui nal hernia Josafat SALCIDO Colonoscopy Josafat SALCIDO Payers Date Payer Category Payer Self-pay [id number] 2022 Unknown [id number] 1960 Unknown [id number] [id number] [id number] 1960 Unknown [id number] 2.16.8 [id number] 1960 Unknown [id number] 2.16.8 [id number] 1960 Unknown [id number] 2.16.8 [id number] 1959 Unknown [id number] Unknown [id number] 2.16.8 [id number] Social History Date Type Detail Facility Start: 09-05-2023 Tobacco smoking status Heavy t obacco smoker (finding) [facility] Tobacco smoking status Never [facility] Sex Assigned At Male [facility] Start: 1960 Sex Assigned At Male [facility] Functional Status Date Assessment Result Facility 09-05-2023 Functional Status N/A [facility] Hospital Discharge instructions 10-31-2023 Note Date & Type Note Facility 10-31-2023 Hospital Discharg e instructions Follow Up Care 10/31/2023 13:13:36 With:LARA QUEZADA, SARAH Ferrer Address: [address] [place] [address]- When: only if needed [facility] General Surgery [place] Progress note 10-13-2023 Note Date & Type Note Facility 10-13-2023 Note [facility] Note Reason for cardiology consult: Cardiac clearance for left inguinal hernia repair by Dr. Salcido Chief Complaint: No complaint except for the left inguinal pain at the hernia site HPI: Jesús Coyle Jr. is a 62 y.o. male [...] follow-up at this point Arleen Tobin MD, [facility] Clinical Note 09-05-2023 Note Date & Type Note Facility 09-05-2023 Note General Surgery Offi ce/Clinic Note Chief Complaint consultation for hernia HPI Staff 62 year old male presents on follow up from [facility] [place] [facility] for left inguinal hernia. Patient presented [...] year h/o left inguinal hernia, seen in [facility] ED 08/31/23 because he was unable [...] available Problem List/ (more content not included)... [facility] Comment on above: Result Comment: Elec tronically Signed By: Josafat SALCIDO MD\.br\Date and Time Signed: 09/05/23 13:57 EDT Evaluation + Plan note Note Date & Type Note Facility Evaluation + Plan note No data available for this section [facility] General Surgery [place] Evaluation + Plan note Note Date & Type Note Facility Evaluation + Plan note Future Appointments Appointment Date:11/14/2023 01:00:00 PM Scheduled Provider:Josafat SALCIDO MD Location:[facility] Appointment Type: Post Op 15 [facility] General Surgery [place] Evaluation note Note Date & Type Note Facility Evaluation note No assessment information availa [facility] Work Phone: Hospital Discharge instructions Note Date & Type Note Facility Hospital Discharge instructions No data available for this section [facility] General Surgery [place] Progress note Note Date & Type Note Facility Progress note No data available for this section [facility] General Surgery [place] Summary Purpose Family History No Family History Records Found No data available for this section No Family History Records Found No data available for this section No Family History Records Found No data available for this section No Family History Records Found Advance Directives No Advanced Directives Records Found Advance Directive Response Recorded Date/ Time Advance Directives No September 08 2:15pm Additional Source Comments (unrecognized sect ion and content) No Status Records FoundNo Status Records FoundNo Status Records FoundNo Status Records Found INFORMATION SOURCE (unrecogn ized section and content) DATE CREATED AUTHOR 08/20/2017 [facility] DATE CREATED AUTHOR AUTHOR'S ORGANIZ ATION 10/14/2023 [facility] DATE CREATED AUTHOR AUTHOR'S ORGANIZ ATION 11/02/[address] [facility] DATE CREATED AUTHOR AUTHOR'S ORGANIZ ATION 11/17/2023 [facility] Care Teams (unrecognized sec tion and content) Team Status: Inactive Member Role Status Dates Josafat Salcido MD FACS Attending Provider Active Start: October 22, 2023 End: October 22, 2023 Goals (unrecognized section and content) Goals may be documented in a n alternate section FOR RECORDS PERTAINING TO PATIENTS WHO ARE [...] BE BASED ON THE PRIMARY CLINICAL RECORDS. [facility]. provides no warranty or guarantee of the accuracy or completeness of information in this document.
--- NOTE | 2024-03-30 01:25 | CT_ITS ---
The [address] [address] Patient Name: JESÚS COYLE MRN: [id number] date: 1960 Sex: M Assigned Patient Location: ER Current Patient Location: Accession/Order Number: [id number] Exam Date: 03/30/2024 02:45 Report Date: 03/30/2024 04:37 At the request of: JUSTINA MARKER Procedure: CT angio chest CTA OF THE CHEST WITH CONTRAST: 03/30/2024 2:45 AM EST HISTORY: Short of breath. Right-sided chest pain. Fall from ladder. TECHNIQUE: Initially, thin section noncontrast images through portions of the chest were obtained for the purpose of establishing proper bolus timing of contrast. Subsequently, thin section axial CT images were obtained through the chest after intravenous administration of nonionic IV contrast. To optimally assess the thoracic vasculature, the original axial data was used to create 3D volume rendered, multiplanar reformatted and/or maximum intensity projection images in various planes. The axial and reformatted data were reviewed for this report. Dose reduction techniques were achieved by using automated exposure control and/or adjustment of mA and/or kV according to patient size and/or use of iterative reconstruction technique. COMPARISON: CT abdomen and pelvis with contrast obtained the same day dictated separately. FINDINGS: Bolus opacification of the pulmonary arteries was adequate for purposes of diagnosis. There is no central, lobar, or segmental pulmonary arterial filling defect to suggest pulmonary embolus. Dependent inferior right lung base atelectasis and infiltrative bronchograms. Right lung base pneumonia suspected. Small dependent right pleural effusion. No left pleural effusion. Small calcified granulomas are seen left lower lobe at least 2 noted measuring less than 1 cm each. Background COPD with pulmonary emphysematous disease. Centrilobular blebs throughout the upper lobes. Inflation of lungs. No left pleural effusion. No noncalcified mass or nodule. No pneumothorax. Cardiac chambers are upper limits normal to mildly enlarged. No pericardial effusion. Moderate coronary artery calcific disease. Small chronically caliber left hilar lymph and AP window lymph nodes. No pathologically enlarged mediastinal or hilar lymph nodes. Mild atherosclerotic calcific plaque of the aorta. No dissection or aneurysm. There is focal nodular density along the posterior wall of the distal right mainstem bronchus. Could be some mucous secretions. No axillary adenopathy. Numerous calcified splenic granulomas. CT/CT angio chest IMPRESSION: 1. Negative for acute PE. 2. Acute dependent right lower lobe pneumonia and atelectasis with trace right pleural fluid. Follow-up with chest x-ray to resolution. 3. COPD and upper lobe pulmonary emphysematous centrilobular blebs. 4. Multiple scattered calcified mostly left lung granulomas and splenic granulomas with calcified left hilar and mediastinal lymph nodes from old granulomatous disease exposure. 5. Moderate coronary artery calcific disease. 6. Probable mucus within the distal wall right mainstem bronchus. Electronically authenticated by: CHANG CORDOVA Date: 03/30/2024 04:37
--- NOTE | 2024-03-30 01:25 | CT_ITS ---
The [address] [address] Patient Name: JESÚS COYLE MRN: [id number] date: 1960 Sex: M Assigned Patient Location: ER Current Patient Location: ER Accession/Order Number: [id number] Exam Date: 03/30/2024 02:45 Report Date: 03/30/2024 04:49 At the request of: JUSTINA MARKER Procedure: CT abdomen pelvis w con CT OF THE ABDOMEN AND PELVIS WITH CONTRAST: 03/30/2024 2:45 AM EST CLINICAL HISTORY: Right-sided flank pain. Known left inguinal hernia. COMPARISONS: CT abdomen and pelvis with contrast 08/31/2023. CTA chest obtained same day dictated separately. TECHNIQUE: Thin section axial CT images were obtained from the lung bases to the pubis symphysis. This CT exam was performed using one or more of the following dose reduction techniques: Automated exposure control, adjustment of the mA and/or kV according to patient size, or use of iterative reconstruction technique. Thin section coronal and sagittal images were reconstructed from the axial data set. All images were reviewed and interpreted. CONTRAST: Intravenous contrast was administered. Type and amount is documented at the local institution. FINDINGS: LUNG BASES: CTA chest obtained today dictated separately. There is dependent right lung base atelectasis and developing infiltrate/pneumonia with small right layering pleural effusion. Scarring at left lung base. Lung bases otherwise clear. LIVER: Mild hepatic steatosis. Liver otherwise negative. GALLBLADDER: Normal. BILIARY TREE: No ductal dilatation. PANCREAS: Normal. SPLEEN: Multiple scattered calcified splenic granulomas. ADRENALS: Normal right adrenal gland. Stable left adrenal nodule lateral limb left adrenal gland measuring 1.8 cm long axis and 1.1 cm short axis. KIDNEYS: No hydronephrosis or urolithiasis in either kidney. Tiny cortical cysts scattered throughout left kidney upper, mid and lower pole unchanged. Mostly subcentimeter in size. URINARY BLADDER: Moderate distention of fluid. No wall thickening. PELVIC STRUCTURES: Enlarged prostate with heterogeneous appearance. Prostate extends 4.6 cm AP and 5 cm transverse. There is some underlying nodularity. Be causing chronic bladder outlet obstruction. Correlation with labs and exam. SMALL BOWEL: No evidence of obstruction, gross mass, or inflammatory change. LARGE BOWEL: Fluid throughout large bowel from cecum to rectosigmoid with some mild wall thickening suggesting nonspecific mild colitis. Correlate for infectious etiologies. There is no significant diverticulosis. There is no evidence of diverticulitis. APPENDIX: No active disease with normal appendix. LYMPH NODES: No pathologically enlarged lymph nodes but there is small amount of increased number of lymph nodes in the lateral aortic region. PERITONEUM: No intraperitoneal free air. No free intraperitoneal fluid. MESENTERY: Unremarkable. RETROPERITONEUM: The retroperitoneum is unremarkable. AORTA: Normal in caliber. Scattered moderate atherosclerotic calcific plaque throughout the wall of the aorta. BODY WALL: No body wall mass. Large left inguinal hydrocele. OSSEOUS STRUCTURES: No lytic or blastic bone lesion. No fracture. Dextroscoliosis at the mid lumbar region with multilevel degenerative disc and endplate changes. CT/CT abdomen pelvis w con IMPRESSION: 1. Right lower lobe pneumonia. Small right pleural effusion with dependent atelectasis. 2. Possible mild the diffuse colitis with secretory fluid and diarrhea. Correlate with symptoms. 3. Persistent stable indeterminate left adrenal nodule. There is some adjacent small nonenlarged but increased number of lymph nodes in the left perinephric region in this area near takeoff left renal artery. Recommend correlation with dedicated CT adrenal study without and with contrast with plate and washout. 4. Stable small cortical left renal cyst. 5. Calcified splenic granulomas. 6. Mild hepatic steatosis. 7. Moderately distended urinary bladder with marked enlargement of prostate gland with underlying heterogeneity and nodularity. Recommend correlation with labs and clinical exam. Further imaging of prostate can be obtained to exclude underlying more aggressive process or malignancy. 8. Large left scrotal hydrocele. Electronically authenticated by: CHANG CORDOVA Date: 03/30/2024 04:49
--- NOTE | 2024-03-30 01:27 | ECG_ITS ---
The [facility] Test Date: 2024-03-30 Pat Name: JESÚS COYLE Department: Room: - Gender: Male [employer]: : 1960 Requested By: [id number] Order Number: [id number] Reading MD: RENATA WAGGONER Measurements Intervals [place] Rate: 89 P: 46 NM: 132 QRS: 61 QRSD: 96 T: 49 QT: 358 QTc: 405 Interpretive Statements 1100 Sinus rhythm 1470 with occasional supraventricular premature complexes 1570 with occasional ventricular premature complexes 9140 abnormal rhythm ECG Electronically Signed On 03-30-2024 6:57:26 EST by RENATA WAGGONER
--- NOTE | 2024-03-30 01:34 | ED.FALL1 ---
HPI HPI - Fall General Chief Complaint: Fall Stated Complaint: FALL Time Seen by Provider: 03/30/24 01:15 Source: patient Mode of arrival: walk-in Limitations: no limitations History of Present Illness HPI Narrative: This 63-year-old male presents for evaluation of right mid flank and upper abdominal pain and pain in his left inguinal area. The patient had a left inguinal hernia surgery with Dr. Salcido in September. Initially the hernia had resolved but since that time it has popped back up and is larger than before his surgery. He has not followed back up with the surgeon since that time. He denies any urinary symptoms. Last week he was on a ladder approximately 5 feet up when he lost his footing and fell back. He denies any neck pain but thinks he may have hit his head because he has a tender spot on the vertex of his scalp. Since that time he has had pain in the right posterior lower rib cage and upper abdominal area. Pain is worse with deep breathing and movement. He has been using Tylenol and Motrin which initially were helping his pain but for the past 1 to 2 days the pain has gotten worse. He denies any fever or hemoptysis. He is not on any blood thinners. Related Data Home Medications ?Medication ?Instructions ?Recorded ?Confirmed No Known Home Medications 03/29/24 03/29/24 Allergies Allergy/AdvReac Type Severity Reaction Status Date / Time bee pollen Allergy Intermediate swelling Verified 03/29/24 23:56 bee venom protein (honey bee) Allergy swelling Verified 03/29/24 23:56 Opioid HPI Opioid Management Most Recent Pain and Opioid Data: Last Pain Scale 3 10/22/23 13:57 10/22/23 Review of Systems ROS Status of ROS 10 or more systems reviewed and unremarkable except as noted in history and below [facility] Medical History (Updated 03/30/24 @ 05:08 by Sugey Robledo MD) Back pain ?M54.9 - Dorsalgia, unspecified (ICD-10) Arthritis ?M19.90 - Unspecified osteoarthritis, unspecified site (ICD-10) Seasonal allergies ?J30.2 - Other seasonal allergic rhinitis (ICD-10) Heartburn ?R12 - Heartburn (ICD-10) Elevated blood pressure reading without diagnosis of hypertension ?R03.0 - Elevated blood-pressure reading, without diagnosis of hypertension (ICD-10) Left inguinal hernia ?K40.90 - Unilateral inguinal hernia, without obstruction or gangrene, not specified as recurrent (ICD-10) Surgical History H/O colonoscopy ?Z98.890 - Other specified postprocedural states (ICD-10) Family History Other Cancer Family history of diabetes mellitus Family history of hypertension Social History Within the past year, how often did you have a drink containing alcohol: never Score interpretation: A score less than 4 is consistent with normal alcohol consumption. Smoking status: Current every day smoker What tobacco products do you use: cigarettes Packs per day: 1 Years smoked: 45 Smoking pack-years: 45.00 Non-prescribed substance use: denies use Previous occupational history: HVAC Highest level of school completed/degree received: Associate degree: occupational, technical, vocational program Little interest or pleasure in doing things: not at all Feeling down, depressed, or hopeless: not at all Exam Narrative Exam Narrative: Vital signs and Nursing Notes reviewed: Patient is afebrile with a normal pulse, blood pressure is moderately low at 93/75, he is not hypoxic with pulse ox of 96% on room air General: Awake, alert, oriented, nontoxic but uncomfortable appearing thin adult male, he winces in pain with any movement on the stretcher HEENT: Normocephalic atraumatic, tenderness to the vertex of the scalp without any hematoma ecchymosis abrasion or other notable abnormality mucous membranes are moist and pink, eyes are clear, normal conjunctiva, vision is grossly intact, posterior pharynx is normal in appearance. Neck: Supple, no m midline bony vertebral tenderness or step-off Chest: Lungs are clear to auscultation with good air entry with the patient is unable to take deep breaths due to pain in the right side of his chest CVS: Regular rate and rhythm S1-S2, no murmurs rubs or gallops, pulses are brisk and equal bilaterally, no reproducible chest wall tenderness ABD: Soft, nondistended, nontender, no rebound guarding or rigidity, bowel sounds are normal, no pulsatile masses appreciated : Large firm hernia on the left inguinal region encompassing the entire scrotum Extremities: Moving all extremities, no lower extremity tenderness or swelling noted, negative Homans' sign, pulses are brisk and equal bilaterally Skin: Normal in appearance without rash,pallor, petechiae or purpura Neuro: No focal deficits Constitutional Vital Signs, click to edit/add: Last Vital Signs Temp 98.3 F 03/29/24 23:52 Pulse 100 H 03/29/24 23:52 Resp 22 H 03/29/24 23:52 BP 93/75 03/29/24 23:52 Pulse Ox 96 03/29/24 23:52 Course Vital Signs Vital signs: Vital Signs Temperature 98.3 F 03/29/24 23:52 Pulse Rate 100 H 03/29/24 23:52 Respiratory Rate 22 H 03/29/24 23:52 Blood Pressure 93/75 03/29/24 23:52 Pulse Oximetry 96 03/29/24 23:52 Temperature 98.3 F 03/29/24 23:52 Pulse Rate 100 H 03/29/24 23:52 Respiratory Rate 22 H 03/29/24 23:52 Blood Pressure 93/75 03/29/24 23:52 Pulse Oximetry 96 03/29/24 23:52 MDM - Fall MDM Narrative Medical decision making narrative: This 63-year-old male presents for evaluation of right sided rib pain/upper abdominal pain after falling off a ladder from approximately 5 feet last week. He also thinks he struck his head because he had some tenderness in the vertex of his scalp. He is mildly tender in this area without any notable ecchymosis or abrasion. His lungs are clear but he is not taking deep breaths due to the pain when he takes a deep breath. He also has an inguinal hernia that was repaired in September by Dr. Salcido but has since recurred since around the and is large and tender in the left inguinal area. An attempt at reducing this hernia was not performed due to the size of it. It did not decrease in size while he was lying flat. The patient was medicated with IV fluids and morphine. An EKG was ordered due to the pain in his chest and shortness of breath. EKG done prior to the sinus rhythm at 89 bpm with occasional PVCs and no acute findings. Routine labs are reviewed. His white count is elevated at 17.6. He has a stable hemoglobin. Electrolytes are normal. Lactic acid is normal at 1.9. CT scan of the brain is negative for acute findings. I did look at his CT scan of the chest and noted that he has a right lower lobe pneumonia likely related to splinting due to his chest injury. 2 g of IV Rocephin and 500 mg of IV Zithromax was ordered at that time. He has recently been coughing and is a smoker. CT scan of the chest shows no pulmonary embolism but does show right lower lobe infiltrate consistent with pneumonia. He does not show any pneumothorax or rib fracture. The results of the CT scan were discussed with the patient. CT scan of the abdomen and pelvis which is included in the body of this report shows a large hydrocele however I suspect this is actually the left inguinal hernia that the patient had repaired last September but recurred in December/January when he was coughing from an upper respiratory illness. It is bothersome but he denies any severe pain, nausea or vomiting related to the hernia. At this time especially in light of him having a right lower lobe pneumonia I suspect that he will not require transfer for hernia repair. He will be discharged home with prescription for Augmentin and Zithromax as well as Percocet and Colace to prevent constipation from the narcotic pain medication and referral to Dr. Salcido for reevaluation of the left inguinal hernia. Medical Records Attestation: I reviewed the patient's medical records. Medical records narrative: [place] [address] CT Scan Report Signed Patient: JESÚS COYLE Jr. MR#: [id number] : 1960 Acct:[id number] Age/Sex: 63 / M ADM Date: 03/29/24 Loc: ER Attending Dr: Ordering Physician: Sugey Robledo Date of Service: 03/30/24 Procedure(s): CT head/brain wo con Accession Number(s): [id number] cc: Physician,Non-Staff M.DAurora~ The [place] [id number] Patient Name: JESÚS COYLE MRN: [id number] date: 1960 Sex: M Assigned Patient Location: ER Current Patient Location: ER Accession/Order Number: [id number] Exam Date: 03/30/2024 02:45 Report Date: 03/30/2024 03:52 At the request of: SUGEY ROBLEDO Procedure: CT head/brain wo con EXAMINATION: CT Head without Contrast TECHNIQUE: Multiple axial noncontrast images of the brain were obtained and reformatted according to the standard protocol. Q DOCUMENTATION: At least one of the following dose reduction techniques was utilized: Iterative reconstruction, and/or Automatic Exposure Control, and/or mA/kV adjustment based on body size. INDICATION: fall from ladder COMPARISON: None FINDINGS: Intracranial hemorrhage: No CT evidence of intraparenchymal, intraventricular, or extraaxial hemorrhage. Infarct/Vascular: No evidence of acute transcortical infarctions. There is an old lacunar infarction within the right thalamus. There is also small area of old infarction within the posterior right lentiform nucleus and extending superiorly into the adjacent white matter. Mild changes of chronic small vessel ischemic disease. Intracranial Mass: No space-occupying intracranial lesions. CSF Spaces: The ventricles, sulci, and cisterns are normal. Calvarium and Scalp: Unremarkable. Mastoid Air Cells: Clear. Paranasal Sinuses: Visualized paranasal sinuses are clear. Orbits: Orbits are unremarkable. CT/CT head/brain wo con IMPRESSION: 1. No CT evidence of acute intracranial abnormalities. 2. Chronic intracranial changes, as described above. Electronically authenticated by: IRMA VALERIO Date: 03/30/2024 03:52 [place] [address] CT Scan Report Signed Patient: JESÚS COYLE Jr. MR#: [id number] : 1960 Acct:[id number] Age/Sex: 63 / M ADM Date: 03/29/24 Loc: ER Attending Dr: Ordering Physician: Sugey Robledo Date of Service: 03/30/24 Procedure(s): CT angio chest Accession Number(s): [id number] cc: Physician,Non-Staff M.DAurora~ The [place] [address] Patient Name: JESÚS COYLE MRN: [id number] date: 1960 Sex: M Assigned Patient Location: ER Current Patient Location: ER Accession/Order Number: [id number] Exam Date: 03/30/2024 02:45 Report Date: 03/30/2024 04:37 At the request of: SUGEY MARKER Procedure: CT angio chest CTA OF THE CHEST WITH CONTRAST: 03/30/2024 2:45 AM EST HISTORY: Short of breath. Right-sided chest pain. Fall from ladder. TECHNIQUE: Initially, thin section noncontrast images through portions of the chest were obtained for the purpose of establishing proper bolus timing of contrast. Subsequently, thin section axial CT images were obtained through the chest after intravenous administration of nonionic IV contrast. To optimally assess the thoracic vasculature, the original axial data was used to create 3D volume rendered, multiplanar reformatted and/or maximum intensity projection images in various planes. The axial and reformatted data were reviewed for this report. Dose reduction techniques were achieved by using automated exposure control and/or adjustment of mA and/or kV according to patient size and/or use of iterative reconstruction technique. COMPARISON: CT abdomen and pelvis with contrast obtained the same day dictated separately. FINDINGS: Bolus opacification of the pulmonary arteries was adequate for purposes of diagnosis. There is no central, lobar, or segmental pulmonary arterial filling defect to suggest pulmonary embolus. Dependent inferior right lung base atelectasis and infiltrative bronchograms. Right lung base pneumonia suspected. Small dependent right pleural effusion. No left pleural effusion. Small calcified granulomas are seen left lower lobe at least 2 noted measuring less than 1 cm each. Background COPD with pulmonary emphysematous disease. Centrilobular blebs throughout the upper lobes. Inflation of lungs. No left pleural effusion. No noncalcified mass or nodule. No pneumothorax. Cardiac chambers are upper limits normal to mildly enlarged. No pericardial effusion. Moderate coronary artery calcific disease. Small chronically caliber left hilar lymph and AP window lymph nodes. No pathologically enlarged mediastinal or hilar lymph nodes. Mild atherosclerotic calcific plaque of the aorta. No dissection or aneurysm. There is focal nodular density along the posterior wall of the distal right mainstem bronchus. Could be some mucous secretions. No axillary adenopathy. Numerous calcified splenic granulomas. CT/CT angio chest IMPRESSION: 1. Negative for acute PE. 2. Acute dependent right lower lobe pneumonia and atelectasis with trace right pleural fluid. Follow-up with chest x-ray to resolution. 3. COPD and upper lobe pulmonary emphysematous centrilobular blebs. 4. Multiple scattered calcified mostly left lung granulomas and splenic granulomas with calcified left hilar and mediastinal lymph nodes from old granulomatous disease exposure. 5. Moderate coronary artery calcific disease. 6. Probable mucus within the distal wall right mainstem bronchus. The [place] [id number] CT Scan Report Signed Patient: JESÚS COYLE Jr. MR#: [id number] : 1960 Acct:[id number] Age/Sex: 63 / M ADM Date: 03/29/24 Loc: ER Attending Dr: Ordering Physician: Sugey Robledo Date of Service: 03/30/24 Procedure(s): CT abdomen pelvis w con Accession Number(s): [id number] cc: Physician,Non-Staff M.D.~ The [address] [address] Patient Name: JESÚS COYLE MRN: [id number] date: 1960 Sex: M Assigned Patient Location: ER Current Patient Location: ER Accession/Order Number: [id number] Exam Date: 03/30/2024 02:45 Report Date: 03/30/2024 04:49 At the request of: SUGEY ROBLEDO Procedure: CT abdomen pelvis w con CT OF THE ABDOMEN AND PELVIS WITH CONTRAST: 03/30/2024 2:45 AM EST CLINICAL HISTORY: Right-sided flank pain. Known left inguinal hernia. COMPARISONS: CT abdomen and pelvis with contrast 08/31/2023. CTA chest obtained same day dictated separately. TECHNIQUE: Thin section axial CT images were obtained from the lung bases to the pubis symphysis. This CT exam was performed using one or more of the following dose reduction techniques: Automated exposure control, adjustment of the mA and/or kV according to patient size, or use of iterative reconstruction technique. Thin section coronal and sagittal images were reconstructed from the axial data set. All images were reviewed and interpreted. CONTRAST: Intravenous contrast was administered. Type and amount is documented at the local institution. FINDINGS: LUNG BASES: CTA chest obtained today dictated separately. There is dependent right lung base atelectasis and developing infiltrate/pneumonia with small right layering pleural effusion. Scarring at left lung base. Lung bases otherwise clear. LIVER: Mild hepatic steatosis. Liver otherwise negative. GALLBLADDER: Normal. BILIARY TREE: No ductal dilatation. PANCREAS: Normal. SPLEEN: Multiple scattered calcified splenic granulomas. ADRENALS: Normal right adrenal gland. Stable left adrenal nodule lateral limb left adrenal gland measuring 1.8 cm long axis and 1.1 cm short axis. KIDNEYS: No hydronephrosis or urolithiasis in either kidney. Tiny cortical cysts scattered throughout left kidney upper, mid and lower pole unchanged. Mostly subcentimeter in size. URINARY BLADDER: Moderate distention of fluid. No wall thickening. PELVIC STRUCTURES: Enlarged prostate with heterogeneous appearance. Prostate extends 4.6 cm AP and 5 cm transverse. There is some underlying nodularity. Be causing chronic bladder outlet obstruction. Correlation with labs and exam. SMALL BOWEL: No evidence of obstruction, gross mass, or inflammatory change. LARGE BOWEL: Fluid throughout large bowel from cecum to rectosigmoid with some mild wall thickening suggesting nonspecific mild colitis. Correlate for infectious etiologies. There is no significant diverticulosis. There is no evidence of diverticulitis. APPENDIX: No active disease with normal appendix. LYMPH NODES: No pathologically enlarged lymph nodes but there is small amount of increased number of lymph nodes in the lateral aortic region. PERITONEUM: No intraperitoneal free air. No free intraperitoneal fluid. MESENTERY: Unremarkable. RETROPERITONEUM: The retroperitoneum is unremarkable. AORTA: Normal in caliber. Scattered moderate atherosclerotic calcific plaque throughout the wall of the aorta. BODY WALL: No body wall mass. Large left inguinal hydrocele. OSSEOUS STRUCTURES: No lytic or blastic bone lesion. No fracture. Dextroscoliosis at the mid lumbar region with multilevel degenerative disc and endplate changes. CT/CT abdomen pelvis w con IMPRESSION: 1. Right lower lobe pneumonia. Small right pleural effusion with dependent atelectasis. 2. Possible mild the diffuse colitis with secretory fluid and diarrhea. Correlate with symptoms. 3. Persistent stable indeterminate left adrenal nodule. There is some adjacent small nonenlarged but increased number of lymph nodes in the left perinephric region in this area near takeoff left renal artery. Recommend correlation with dedicated CT adrenal study without and with contrast with plate and washout. 4. Stable small cortical left renal cyst. 5. Calcified splenic granulomas. 6. Mild hepatic steatosis. 7. Moderately distended urinary bladder with marked enlargement of prostate gland with underlying heterogeneity and nodularity. Recommend correlation with labs and clinical exam. Further imaging of prostate can be obtained to exclude underlying more aggressive process or malignancy. 8. Large left scrotal hydrocele. Electronically authenticated by: CHANG CORDOVA Date: 03/30/2024 04:49 Lab Data Attestation: I reviewed the patient's lab results. Labs: Lab Results 03/30/24 Range/Units 01:47 WBC 17.6 H (4.0-11.0) 10^3/uL RBC 4.90 (4.70-6.10) 10^6/uL Hgb 15.7 (14.0-18.0) g/dL Hct 48.2 (42.0-54.0) % MCV 98.4 H (80.0-94.0) fL MCH 32.0 (25.9-34.0) pg MCHC 32.6 (29.9-35.2) g/dL RDW 14.4 (11.0-15.0) % Plt Count 363 (150-450) 10^3/uL MPV 10.1 (9.5-13.5) fL Neut % (Auto) 76.3 H (43.0-75.0) % Lymph % (Auto) 15.0 L (20.5-60.0) % [place] % (Auto) 5.2 (1.7-12.0) % Eos % (Auto) 2.3 (0.9-7.0) % Baso % (Auto) 0.9 (0.2-2.0) % Neut # (Auto) 13.5 H (1.4-6.5) 10^3/uL Lymph # (Auto) 2.6 (1.2-3.8) 10^3/uL [place] # (Auto) 0.9 H (0.3-0.8) 10^3/uL Eos # (Auto) 0.4 (0.0-0.7) 10^3/uL Baso # (Auto) 0.2 H (0.0-0.1) 10^3/uL Abs Immat Gran (auto) 0.05 H (0.00-0.03) 10^3/uL Imm/Tot Granulo (auto) 0.3 (0.0-0.5) % Sodium 143 (136-145) mmol/L Potassium 3.6 (3.5-5.1) mmol/L Chloride 103 (98-107) mmol/L Carbon Dioxide 27.6 (21.0-32.0) mmol/L Anion Gap 16.0 BUN 13.0 (7.0-18.0) mg/dL Creatinine 0.97 (0.70-1.30) mg/dL Est GFR ( Amer) >60 (>=60 mL/min/1.73m^2) Est GFR (Non-Af Amer) >60 (>=60 mL/min/1.73m^2) BUN/Creatinine Ratio 13.4 Glucose 117 H (74-106) mg/dL Lactate 1.9 (0.4-2.0) mmol/L Calcium 9.7 (8.5-10.1) mg/dL Total Bilirubin 0.3 (0.2-1.0) mg/dL AST 16 (15-37) U/L ALT 21 (16-63) U/L Alkaline Phosphatase 126 H (46-116) U/L Total Protein 7.9 (6.4-8.2) g/dL Albumin 3.9 (3.4-5.0) g/dL Globulin 4.0 g/dL Albumin/Globulin Ratio 1.0 ECG Data Attestation: I personally reviewed and interpreted this ECG as follows: (Sinus rhythm with occasional PVCs 89 bpm, normal axis, normal intervals, no acute ST segment elevation or T wave inversion) Discharge Plan Discharge Chief Complaint: Fall Clinical Impression: Fall from ladder, Contusion of rib on right side, RLL pneumonia, Inguinal hernia, left Patient Disposition: Home, Self-Care Time of Disposition Decision: 05:05 Condition: Good Prescriptions / Home Meds: No Action No Known Home Medications Print Language: Japanese Instructions: How to Use an Incentive Spirometer (ED), Inguinal Hernia (ED), Contusion in Adults (ED), Pneumonia (ED), Rib Contusion (ED) Referrals: Josafat Salcido MD [Physician] - 1 week Physician,Ana Maria-MD Gabe [Primary Care Provider] - 1 week
[2024-03-30] MEDS: ONDANSETRON PF 4 MG/2 ML VIAL IV (01:45)
[2024-03-30] MEDS: MORPHINE SULFATE 4 MG/ML VIAL IV ×2 (01:45→04:40)
[2024-03-30 01:51] LABS: Basophils Absolute Auto 0.2 10^3/uL (0.0-0.1); Basophils Percent Auto 0.9 % (0.2-2.0); Eosinophils Absolute Auto 0.4 10^3/uL (0.0-0.7); Eosinophils Percent Auto 2.3 % (0.9-7.0); Hematocrit 48.2 % (42.0-54.0); Hemoglobin 15.7 g/dL (14.0-18.0); Immature Granulocytes Abs Auto 0.05 10^3/uL (0.00-0.03); Immature Granulocytes Pct Auto 0.3 % (0.0-0.5); Lymphocytes Absolute Auto 2.6 10^3/uL (1.2-3.8); Mean Corpuscular HGB Conc 32.6 g/dL (29.9-35.2); Mean Corpuscular Volume 98.4 fL (80.0-94.0); Mean Platelet Volume 10.1 fL (9.5-13.5); Monocytes Absolute Auto 0.9 10^3/uL (0.3-0.8); Monocytes Percent Auto 5.2 % (1.7-12.0); Neutrophils Absolute Auto 13.5 10^3/uL (1.4-6.5); Neutrophils Percent Auto 76.3 % (43.0-75.0); Platelet Count 363 10^3/uL (150-450); Red Cell Distribution Width 14.4 % (11.0-15.0); White Blood Count 17.6 10^3/uL (4.0-11.0)
[2024-03-30 02:16] LABS: Alanine Aminotransferase 21 U/L (16-63); Albumin Level 3.9 g/dL (3.4-5.0); Alkaline Phosphatase 126 U/L (46-116); Aspartate Amino Transferase 16 U/L (15-37); BUN Creatinine Ratio 13.4; Bilirubin Total 0.3 mg/dL (0.2-1.0); Calcium 9.7 mg/dL (8.5-10.1); Carbon Dioxide 27.6 mmol/L (21.0-32.0); Chloride 103 mmol/L (98-107); Estimated GFR (African America >60 (>=60 mL/min/1.73m^2); Estimated GFR (Non-African Ame >60 (>=60 mL/min/1.73m^2); Glucose 117 mg/dL (74-106); Potassium 3.6 mmol/L (3.5-5.1); Sodium 143 mmol/L (136-145); Total Protein 7.9 g/dL (6.4-8.2)
[2024-03-30 02:19] LABS: Lactate/Lactic Acid 1.9 mmol/L (0.4-2.0)
[2024-03-30] MEDS: CEFTRIAXONE 2,000 MG in 0.9 % SODIUM CHLORIDE 100 ML 200 MG IV (04:34)
[2024-03-30] MEDS: AZITHROMYCIN 500 MG in 0.9 % SODIUM CHLORIDE 250 ML 250 MG IV (05:08)
[2024-03-30] MEDS: OXYCODONE HCL/ACETAMINOPHEN 5MG/325MG 2 TAB PO (06:13)
[2024-03-30 06:14] VITALS: BP 93/70; PULSE 88; O2SAT 97
== END 2024-03-30 06:23 | disposition home or self-care (01) ==
PROVIDERS: Emergency Provider Emergency Medicine
DX: S20.212A Contusion of left front wall of thorax, initial encounter (principal); W11.XXXA Fall on and from ladder, initial encounter; J18.9 Pneumonia, unspecified organism; K40.91 Unilateral inguinal hernia, without obstruction or gangrene, recurrent; F17.210 Nicotine dependence, cigarettes, uncomplicated; N43.3 Hydrocele, unspecified; K76.0 Fatty (change of) liver, not elsewhere classified
CPT/HCPCS: 36415; 70450; 71275; 74177; 80053; 83605; 85025; 93005; 96365; 96366; 96368; 96375; 96376; 99285; J0456; J0696; J2270; J2405; Q9967

== ENCOUNTER 2024-04-30 13:48 | Outpatient (OUT) | payer BC, SELFPAY ==
--- NOTE | 2024-04-30 | US_ITS ---
The [address] [address] Patient Name: JESÚS COYLE MRN: [id number] date: 1960 Sex: M Assigned Patient Location: Current Patient Location: Accession/Order Number: [id number] Exam Date: 04/30/2024 21:40 Report Date: 05/01/2024 17:01 At the request of: GARCIA REAGAN MD Procedure: US scrotum Scrotal ultrasound HISTORY: Enlargement of left hydrocele COMPARISON: None RIGHT testicle measures 3.2 x 2.7 x 1.9 cm. LEFT testicle measures 4.6 x 2.1 x 2.0 cm. No testicular mass or microcalcifications identified. Normal color flow of both testicles identified. RIGHT epididymal head measures 0.5 cm. LEFT epididymal head measures 0.9 cm. . Large anechoic left hydrocele with echogenic debris present. This measures 11.2 x 7.8 x 5.0 cm. No scrotal wall abnormality identified. US/US scrotum IMPRESSION: Large left anechoic hydrocele. Proximal measurement of 11.2 cm. Normal testicles and epididymides. Impression dictated by: Yohan Sultana M.D.05/01/2024 5:01 PM Dictation Location: [place] [address] Electronically authenticated by: [id number] Y Date: 05/01/2024 17:01
--- OUTSIDE RECORDS SUMMARY | 2024-04-30 14:06 | XMS_ITS | CCD ---
Author Organization [facility] Care Team Providers Care Acquisition Analyst Name Role Phone MARKER, JUSTINA Unavailable Unavailable MARKER, JUSTINA Unavailable Unavailable REQUEST, NONE LISTED Unavailable Unavailable MARKER, JUSTINA Unavailable Unavailable NONE, XXXX Primary Care Physician UnavailARLEEN Pozo Attending Unavailable Loly, MD Josafat Nichols Attending Provider [phone] Josafat Salcido Attending Unavailable Nilbooker, Josafat Nichols Admitting Unavailable GARCIA REAGAN Attending Unavail able NILBooker, Josafat Nichols Attending Unavailable NILL, Josafat Nichols Attending Unavailable NILL, Josafat Nichols Attending Unavailable NILL, Josafat Nichols Attending Unavailable GARCIA REAGAN Attending Unavail able NILBooker, Josafat Nichols Referring Unavailable Allergies Allergy Classification Reported Allergen(s) Allergy Type Date of Onset Reaction(s) Facility (5 sources) Bee/Wasp/Ant venom; Translations: [Bee Stings] Propensity to adverse reactions to substance Patient reported problems (finding) [facility] (1 source) BEE VENOM PROTEIN (HONEY BEE); Translations: [BEE VENOM PROTEIN (HONEY BEE)] Propensity to adverse reactions to drug (disorder) [facility] Repository (1 source) No Known Medication Allergies; Translations: [No Known Medication Allergies] Propensity to adverse reactions (disorder) [facility] Repository NEGATED: Highlighted row has been ruled out! (1 source) Drug allergy [facility] NEGATED: Highlighted row has been ruled out! (1 source) Drug allergy [facility] NEGATED: Highlighted row has been ruled out! (1 source) Drug allergy [facility] NEGATED: Highlighted row has been ruled out! (1 source) Drug allergy [facility] Medications Current Medications Medication Drug Class(es) Dates Sig (Normalized) Sig (Original) Tylenol (1 source) Start: 04-16-2024 Tylenol Oral, Refills(s) 0 Start Date: 04/16/24 Status: Ordered Ascorbic Acid (1 source) Vitamin C Start: 04-16-2024 Vitamin C Hermilo y, Refills(s) 0 Start Date: 04/16/24 Status: Ordered Multi Vitamin+ (1 source) Start: 04-16-2024 Multi Vitamin+ Refill(s) 0 Start Date: 04/16/24 Status: Ordered Problems Active Problems Problem Classification Problem Date Documented Date Episodic/Chronic Abdominal hernia (7 sources) Inguinal hernia; Translations: [Unilateral inguinal hernia, without obstruction or gangrene, not specified as recurrent] Onset: 09-05-2023 Episodic Essential hypertension (7 sources) Essential hypertension; Translations: [Essential (primary) hypertension] Onset: 09-05-2023 Chronic Other female genital disorders (1 source) Disorder of reproductive system 04-05-2024 Episodic Other male genital disorders (1 source) Hydrocele of testis; Translations: [Hydrocele, unspecified] Onset: 04-16-2024 Episodic Residual codes; unclassified (2 sources) Tobacco user; Translations: [Tobacco use] Onset: 09-05-2023 Episodic Screening and history of mental health and substance abuse codes (4 sources) Tobacco use and exposure - finding 09-05-2023 Chronic Substance-related disorders (8 sources) Tobacco dependence syndrome; Translations: [Nicotine dependence, unspecified, uncomplicated] Onset: 10-13-2023 09-05-2023 Chronic Comment on above: Added secondary to d ocumentation in Social History. Past or Other Problems Problem Classification Problem Date Documented Da te Episodic/Chronic Anal and rectal conditions (3 sources) Other specified diseases of anus and rectum; Translations: [OTHER SPEC DISEASES ANUS AND RECTUM] Onset: 09-02-2016 Episodic Hemorrhoids (1 source) Residual hemorrhoidal skin tags; Translations: [RESIDUAL HEMORRHOIDAL SKIN TAGS] Onset: 09-05-2016 Episodic Results Test Name Value Interpretation Reference Range Facil ity Ambulatory Visit Summaryon 0 04-16-2024 Ambulatory Visit Summary Ambulatory Visit Summary LEONIDES RAY, JESÚS Garcia :1960 Visit Date:04/16/2024 Ambulatory Visit Instructions Your Diagnosis Left hydrocele Smoker Tests Performed US Scrotum (Contents) -- Results Pending -- Please visit your patient portal for your results or contact your primary care physician. Your Care Team Attending Physician - GARCIA REAGAN MD Primary Care Physician - NONE, XXXX Referring Physician - Josafat SALCIDO MD This Is Your Medications List acetaminophen (Tylenol) ascorbic acid (Vitamin C) multivitamin (Multi Vitamin+) Procedures Performed Repair of left inguinal hernia (10/22/2023), Colonoscopy. Discharge Vitals Heart Rate (Peripheral) 98 Respiratory Rate 16 Blood Pressure 100/60 Height 165 cm Height 65 in Weight 67.5 kg Weight 148.812 lb BMI 24.79 What to do next Scheduled Follow-Up Appointments Friday. 2024 1:00 PM EDT With: GARCIA REAGAN MD Where: [facility] [address] [place] [address]- You Need to Schedule the Following Appointments Follow Up with GARCIA REAGAN MD, URL When: In 3 months Comments: w/Scrotal US Where: Medications What How Much When Instructions Unchanged acetaminophen (Tylenol) Unchanged ascorbic acid (Vitamin C) Every day Unchanged multivitamin (Multi Vitamin+) Allergies Bee Stings (Patient reported problems) No Known Medication Allergies Problems Ongoing - Any problem that you are currently receiving treatment for. Hypertension Left hydrocele Reducible left inguinal hernia Smoker Tobacco dependence Tobacco use Patient Survey You may receive a survey via text or e-mail asking about your office visit. Please share your experience with us by completing your survey. We appreciate your feedback and thank you for choosing us for your care. Education Materials Hydrocele, Adult A hydrocele is a collection of fluid in the loose pouch of skin that holds the testicles (scrotum). It can occur in one or both testicles. This may happen because: ??? The amount of fluid produced in the scrotum is not absorbed by the rest of the body. ??? Fluid from the abdomen fills the scrotum. Normally, the testicles develop in the abdomen and then drop into the scrotum before . The tube that the testicles travel through usually closes after the testicles drop. If the tube does not close, fluid from the abdomen can fill the scrotum. This is not very common in adults. What are the causes? A hydrocele may be caused by: ??? An injury to the scrotum. ??? An infection. ??? Decreased blood flow to the scrotum. ??? Twisting of a testicle (testicular torsion). ??? A defect. ??? A tumor or cancer of the testicle. Sometimes, the cause is not known. What are the signs or symptoms? A hydrocele feels like a water-filled balloon. It may also feel heavy. Other symptoms include: ??? Swelling of the scrotum. The swelling may decrease when you lie down. You may also notice more swelling at night than in the morning. This is called a communicating hydrocele, in which the fluid in the scrotum goes back into the abdominal cavity when the position of the scrotum changes. ??? Swelling of the groin. ??? Mild discomfort in the scrotum. ??? Pain. This can develop if the hydrocele was caused by infection or twisting. The larger the hydrocele, the more likely you are to have pain. Swelling may also cause pain. How is this diagnosed? This condition may be diagnosed based on a physical exam and your medical history. You may also have tests, including: ??? Imaging tests, such as an ultrasound. ??? A transillumination test. This test takes place in a dark room where a light is placed on the skin of the scrotum. Clear liquid will not impede the light and the scrotum will be illuminated. This helps a health care provider distinguish a hydrocele from a tumor. ??? Blood or urine tests. How is this treated? Most hydroceles go away on their own. If you have no discomfort or pain, your health care provider may suggest close monitoring of your condition until the condition goes away or symptoms develop. This is called watch and wait or watchful waiting. If treatment is needed, it may include: ??? Treating an underlying condition. This may include taking an antibiotic medicine to treat an infection. ??? Having surgery to stop fluid from collecting in the scrotum. ??? Having surgery to drain the fluid. Surgery may include: ? Hydrocelectomy. For this procedure, an incision is made in the scrotum to remove the fluid. ? Needle aspiration. A needle is used to drain fluid. However, the fluid buildup will come back quickly and may lead to an infection of the scrotum. This is rarely done. Follow these instructions at home: Medicines ? (more content not included)... Normal [facility] Ambulatory Visit Summaryon 0 11-14-2023 Ambulatory Visit Summary Ambulatory Visit Summary JESÚS COYLE JR :1960 Visit Date:11/14/2023 Ambulatory Visit Instructions Your Care Team Attending Physician - LOLY QUEZADA, Josafat Nichols Primary Care Physician - [...] for choosing us for your care. Normal [facility] General Surgery Office/Clini c Noteon 11-14-2023 General [...] with problems/questions. Follow-up With When Contact Information LOLY QUEZADA, Josafat Nichols, SARAH Only if needed [place] [address]- Additional Instructions: Problem List/Past Medical [...] History Diabetes mellitus type 2: Mother. [facility] Comment on above: Result Comment: Electronically Signed By : LOLY QUEZADA, Josafat Nichols\.br\Date and Time Signed: 11/14/23 13:12 EDT General [...] Family History Diabetes mellitus type 2: Mother. [facility] Comment on above: Result Comment: Electronically Signed By : LOLY QUEZADA, Josafat [place]\Date and Time Signed: 10/31/23 13:56 EDT Provider Letteron 10-31-2023 Provider Letter Provider Letter October 31, 2023 JESÚS COYLE [address] [place] [id number] : 1960 To Whom It May Concern, The above named person may return to work 11/03/23 with a 10 pound weight restriction until 11/19/23. Sincerely, Dr. Josafat Salcido MD General Surgery [facility] Charli 10-22-2023 L Specimen: [id number] Received: 10/23/23 Status: DARRYL Ronquillo Num: [id number] Spec Type: Surgical Subm Dr: Josafat Salcido MD FACS Tissues: A Hernia Sac (LT ING ZANE) Procedures: HE, Gross/Micro L2 Age/ Patient Sex Location Account Attending Physician Jesús Cyole Jr 62/M LABELL [id number] Josafat Salcido MD FACS SPEC NUM: [id number] RECD: 10/23/23 [facility] NUM: [id number] NOEL: 10/22/23-[address]: Josafat Salcido MD FACS ENTERED: 10/23/[address] [facility] [address]: Wayne Boyle SPEC TYPE: Surgical DEPT: KIM SMITH ENTERED BY: [id number] RECV BY: [id number] ORDERED: HE, Gross/Micro L2 ORDERED: HE, Gross/Micro [...] examinations are performed supporting the above interpretation Specimen: [id number] Received: 10/23/23 Status: DARRYL [place] Num: [id number] Spec Type: Surgical Subm Dr: Josafat Salcido MD FACS Tissues: A Hernia Sac (LT ING ZANE) Procedures: Lizett MEDRANO/Alessandra L2 Patient: Jesús Coyle Jr [id number] (Continued) Specimen: [id number] Received: 10/23/23 (Continued) Signed (signature on file) Atnonio Christiansen MD 10/31/23 0949 Specimen: [id number] Received: 10/23/23 Status: DARRYL Ronquillo Num: [id number] Spec Type: Surgical Subm Dr: Josafat Salcido MD FACS Tissues: A Hernia Sac (LT ING ZANE) Procedures: Lizett MEDRANO/Alessandra L2 Patient: Jesús Coyle Jr [id number] (Continued) Specimen: [id number] Received: 10/23/23 (Continued) CPT Codes 11491 Specimen: [id number] Received: 10/23/23-1355 Status: DARRYL Ronquillo Num: [id number] Spec Type: Surgical Subm Dr: Josafat Salcido MD FACS Tissues: A Hernia Sac (LT ING ZANE) Procedures: Lizett MEDRANO/Alessandra L2 Patient: Jesús Coyle Jr [id number] (Continued) Signed (signature on file) Antonio Christiansen MD 10/31/23 0949 Normal [facility] Office Visiton 10-13-2023 Follow-up visit [id number] Jairo Coyle Jr. 1960 M Date Provider Department Center 10/13/2023 ARLEEN BROWN Family History Problem Relation Age of Onset No Known Problems Mother No Known Problems Father Family Status - Relation Status Age at Mother Father Level of Service:79731 [place] OFFICE/OUTPATIENT NEW MODERATE MDM 45 MINUTES Reason for Visit and Comments: New Patient [632] - Pt is a new patient, and is here for surgery clearance, had EKG last week. [facility] Ambulatory Visit Summaryon 0 09-05-2023 Ambulatory Visit Summary Ambulatory Visit Summary JESÚS COYLE JR :1960 Visit Date:09/05/2023 Ambulatory Visit Instructions Your Care Team Attending Physician - LOLY QUEZADA, Josafat Nichols Primary Care Physician - [...] for choosing us for your care. Normal [facility] Vital Signs Date Time Vital Sign Value Performing Clinician Faci kay 04-16-2024 14:12-0500 Diastolic blood pressure 60 mm[Hg] GARCIA NKANSAH-AMANKRA [facility] 04-16-2024 14:12-0500 Heart rate 98 /min GARCIA NKANSAH-AMANKRA [facility] 04-16-2024 14:12-0500 Respiratory rate 16 /min GARCIA NKANSAH-AMANKRA [facility] 04-16-2024 14:12-0500 Systolic blood pressure 100 mm[Hg] GARCIA NKANSAH-AMANKRA [facility] 09-05-2023 13:07-0400 Blood Pressure Location Josafat SALCIDO [facility] [place] 09-05-2023 13:07-0400 Diastolic blood pressure 82 mm[Hg] Josafat NILL [facility] 09-05-2023 13:07-0400 Heart rate 73 /min Josafat NILL [facility] 09-05-2023 13:07-0400 Respiratory rate 16 /min Josafat NILL [facility] 09-05-2023 13:07-0400 Systolic blood pressure 165 mm[Hg] Josafat NILL [facility] Encounters Encounter Date Encounter Type Care Provider Facility Start: 07-09-2024 ambulatory GARCIA NKANSAH-AMANKRA Facility:[facility] Start: 04-16-2024 End: 04-16-2024 ambulatory GARCIA NKANSAH-AMANKRA Facility: [facility] Start: 04-16-2024 End: 04-16-2024 Patient encounter procedure GARCIA KEAGANANSAH-AMANKRA [facility] Start: 04-09-2024 ambulatory GARCIA NKANSAH-AMANKRA Facility: [facility] Start: 11-14-2023 End: 11-14-2023 ambulatory Josafat R NILL Facility:[facility] Start: 11-14-2023 End: 11-14-2023 Patient encounter procedure Josafat R NILL [facility] Start: 10-31-2023 End: 10-31-2023 ambulatory Josafat R NILL Facility:[facility] Start: 10-31-2023 End: 10-31-2023 Patient encounter procedure Josafat R NILL [facility] Start: 10-22-2023 End: 10-22-2023 ambulatory Josafat R Nill [facility] Work Phone: Start: 10-22-2023 End: 10-22-2023 Departed Referred MD Josafat Salcido Work Phone: [facility] Start: 10-22-2023 End: 10-22-2023 ambulatory Josafat SALCIDO Facility:[id number] Start: 10-13-2023 End: 10-13-2023 ambulatory [facility] Start: 10-13-2023 End: 10-13-2023 Encounter for other preprocedural examination [facility] Start: 09-05-2023 End: 09-05-2023 ambulatory Josafat SALCIDO Facility:[facility] Start: 09-05-2023 End: 09-05-2023 Patient encounter procedure Josafat SALCIDO [facility] [place] Start: 09-01-2023 ambulatory GARCIA NKANSAH-AMANKRA Facility:[facility] Start: 09-02-2016 End: 09-02-2016 Ambulatory JUSTINA MARKER Facility:[facility] Procedures Date Procedure Procedure Detail Performing Clinician Start: 10-22-2023 Repair of left ingui nal hernia Josafat SALCIDO Colonoscopy Josafat SALCIDO Payers Date Payer Category Payer Self-pay [id number] 2022 Unknown [id number] 1960 Unknown [id number] 2.16.8 [id number] 1960 Unknown [id number] 2.16.8 [id number] 1960 Unknown [id number] 2.16.8 [id number] 1960 Unknown [id number] 2.16.8 [id number] 1960 Unknown [id number] 2.16.8 [id number] 1960 Unknown [id number] 2.16.8 [id number] 1959 Unknown [id number] Unknown [id number] 2.16.8 [id number] Social History Date Type Detail Facility Start: 09-05-2023 End: 04-16-2024 Tobacco smoking status Heavy tobacco smoker (finding) [facility] Tobacco smoking status Never [facility] Sex Assigned At Male [facility] Start: 1960 Sex Assigned At Male [facility] Tobacco smoking status Smoker (finding) [facility] Functional Status Date Assessment Result Facility 04-16-2024 Functional Status N/A [facility] 09-05-2023 Functional Status N/A [facility] Clinical Notes 09-05-2023 to 04-16-2024 Note Date & Type Note Facility 04-16-2024 Hospital Discharge instructions Patient Education 04/16/2024 14:24:00 Hydrocele, Adult Hydrocele, Adult A hydrocele is a collection of fluid in the loose pouch of skin that holds the testicles (scrotum). It can occur in one or both testicles. This may happen because: The amount of fluid produced in the scrotum is not absorbed by the rest of the body. Fluid from the abdomen fills the scrotum. Normally, the testicles develop in the abdomen and then drop into the scrotum before . The tube that the testicles travel through usually closes after the testicles drop. If the tube does not close, fluid from the abdomen can fill the scrotum. This is not very common in adults. What are the causes? A hydrocele may be caused by: An injury to the scrotum. An infection. Decreased blood flow to the scrotum. Twisting of a testicle (testicular torsion). A defect. A tumor or cancer of the testicle. Sometimes, the cause is not known. What are the signs or symptoms? A hydrocele feels like a water-filled balloon. It may also feel heavy. Other symptoms include: Swelling of the scrotum. The swelling may decrease when you lie down. You may also notice more swelling at night than in the morning. This is called a communicating hydrocele, in which the fluid in the scrotum goes back into the abdominal cavity when the position of the scrotum changes. Swelling of the groin. Mild discomfort in the scrotum. Pain. This can develop if the hydrocele was caused by infection or twisting. The larger the hydrocele, the more likely you are to have pain. Swelling may also cause pain. How is this diagnosed? This condition may be diagnosed based on a physical exam and your medical history. You may also have tests, including: Imaging tests, such as an ultrasound. A transillumination test. This test takes place in a dark room where a light is placed on the skin of the scrotum. Clear liquid will not impede the light and the scrotum will be illuminated. This helps a health care provider distinguish a hydrocele from a tumor. Blood or urine tests. How is this treated? Most hydroceles go away on their own. If you have no discomfort or pain, your health care provider may suggest close monitoring of your condition until the condition goes away or symptoms develop. This is called watch and wait or watchful waiting. If treatment is needed, it may include: Treating an underlying condition. This may include taking an antibiotic medicine to treat an infection. Having surgery to stop fluid from collecting in the scrotum. Having surgery to drain the fluid. Surgery may include: ?Hydrocelectomy. For this procedure, an incision is made in the scrotum to remove the fluid. ?Needle aspiration. A needle is used to drain fluid. However, the fluid buildup will come back quickly and may lead to an infection of the scrotum. This is rarely done. Follow these instructions at home: Medicines Take mgln-waw-juvexny and prescription medicines only as told by your health care provider. If you were prescribed an antibiotic medicine, take it as told by your health care provider. Do not stop taking the antibiotic even if you start to feel better. General instructions Watch the hydrocele for any changes. Keep all follow-up visits. This is important. Contact a health care provider if: You notice any changes in the hydrocele. The swelling in your scrotum or groin gets worse. The hydrocele becomes red, firm, painful, or tender to the touch. You have a fever. Get help right away if you: Develop a lot of pain or your pain becomes worse. Have chills. Have a high fever. Summary A hydrocele is a collection of fluid in the loose pouch of skin that holds the testicles (scrotum). A hydrocele can cause swelling, discomfort, and pain. In adults, the cause of a hydrocele may not be known. However, it is sometimes caused by an infection or the twisting of a testicle. Hydroceles often go away on their own. If a hydrocele causes pain, treating the underlying cause may be needed to ease the pain. This information is not intended to replace advice given to you by your health care provider. Make sure you discuss any questions you have with your health care provider. Document Revised: 09/27/2021 Document Reviewed: 09/27/2021 [employer] Patient Education 2023 [employer]. Follow Up Care 04/09/2024 14:01:19 With:MERARY QUEZADA, GARCIA, SUJATAL Address: When:Within 3 Month(s) Comments:w/Scrotal US [facility] 04-16-2024 Note Urology Office/Clini c Note Chief Complaint Referral HPI Staff New Pt. Referral per Dr. Salcido due to hydrocele CT [facility] 3 weeks ago IPSS 4 History of Present Illness Tests reviewed: reviewed UA and External Records. I have reviewed the previous health record information and history for this patient from External Provider. I have reviewed and verified the staff HPI to be accurate for this encounter. There have been no associated fever, chills, flank pain, or blood in the urine. Denies any urinary infections since last encounter. Review of Systems PHQ Score Initial Depression Screen Score: 0 SCORE ROS - Provider Constitutional: denies weight loss, denies hot flashes. Eyes: denies eye problems. Gastrointestinal: denies nausea, denies vomiting. Cardiovascular: denies chest pain or angina. Integumentary: no dryness Musculoskeletal: denies musculoskeletal symptoms. ENMT: denies otolaryngeal symptoms. Respiratory: no shortness of breath. Heme/Lymph: denies easy bleeding tendency, denies easy bruising tendency. Psychiatric: no confusion, no anxiety. Genitourinary: See HPI. Physical Exam Vitals & Measurements HR: 98(Peripheral) RR: 16 BP: 100/60 HT: 65 in HT: 165 cm WT: 67.5 kg WT: 148.812 lb BMI: 24.79 General Appearance: alert, no distress, well nourished, well developed male. Head: normocephalic . Eyes: normal orbit and globe. ENMT: normal examination of external ears. Chest: Lungs CTA, respirations non labored. Cardiovascular: regular rate and rhythm. Abdomen: soft, non distended, no tenderness, no mass or organomegaly, no hernia. Genitourinary: normal scrotum, normal testes, normal urethra, normal epididymis, normal vas deferens/spermatic cord. Flank Pain: none. Bladder: nonpalpable. Penis: normal shaft, normal glans. Lymph Nodes: unremarkable palpation of the cervical area. Skin: warm, dry, no bruising. Psychiatric: cooperative, affect appropriate for age, normal judgement, euthymic mood. Assessment/Plan Pt here today with . UA today is negative for blood and infection. 1. Left hydrocele (N43.3: Hydrocele, unspecified) CT AP w/ Con [facility] 03/29/24 - Large Lt scrotal hydrocele Pt states that he had hernia surgery on 09/2023, Lt Inguinal Herniorrhaphy w/ Dr. Salcido. Pt states that the hydrocele isn't bothering him, but has grown a lot since he noticed it. States the ER told him that the hydrocele was a hernia, Dr. Salcido told him it was a hydrocele, went to the ER due to a fall. Pt states that the hydrocele does not hurt. Does not prohibit him from having sexual intercourse. Denies any other abdominal or pelvic procedures, gross hematuria, hx of kidney stones, heart attacks or espino, not on any blood thinners. Counseled pt on the possible causes of hydroceles. Counseled pt on the procedure available to remove the hydrocele, risks and benefits discussed. Advised pt that if he is not bothered by it then he does not need the procedure. Advised pt that we will order a scrotal US to evaluate the hydrocele. Pt states that he would like to monitor the hydrocele for now. Follow up in 3 mos w/Scrotal US. All questions/concerns were discussed. Pt to call the office if he encounters any issues prior. Pt acknowledges understanding. -Will order Scrotal US. 2. Smoker (F17.200: Nicotine dependence, unspecified, uncomplicated) Smoked since he was about 16 yrs old, 1 PPD. Patient presents with left sided hydrocele. He states that he had a left inguinal hernia repair open approximately 9 months ago. Noticed increased swelling in the left hemiscrotum. He states that it has gradually been increasing in size. He denies any discomfort, pain, difficulty voiding or erectile ejaculatory function. I discussed with him that he would benefit from surgical repair but patient will like to hold off. He will follow-up in 3 months with me with reassessment. Will obtain a scrotal ultrasound as well. Follow-up With When Contact Information GARCIA REAGAN MD, [facility] In 3 months Additional Instructions: w/Scrotal US Patient Education Hydrocele, Adult I, Milvia Jacob, personally scribed for Dr. Reagan on 04/16/2024 14:27:14. . Portions of this record may have been created with voice recognition artificial intelligence software, specifically [employer], [employer] system and or [employer]. Substitutions may have occurred due to the inherent limitations of voice recognition and artificial intelligence software. Documentation recorded by the scribMilvia colon, accurately reflects the services(s) I performed and decisions made by me. Authenticated by Dr. Reagan on 04/16/2024 14:35:03. Problem List/Past Medical History Ongoing Hypertension Left hydrocele Reducible left inguinal hernia Smoker Tobacco dependence Tobacco use Historical No qualifying data Procedure/Surgical History (more content not included)... [facility] Comment on above: Result Comment: Elec tronically Signed By: GARCIA REAGAN MD\.br\Date and Time Signed: 04/16/24 14:36 EST\.br\Electronically Co-Signed By: Milvia Jacob\.br\Date and Time Co-Signed: 04/16/24 14:27 EST 04-16-2024 Note Patient Education Urology Hydrocele, Adult A hydrocele is a collection of fluid in the loose pouch of skin that holds the testicles (scrotum). It can occur in one or both testicles. This may happen because: ??? The amount of fluid produced in the scrotum is not absorbed by the rest of the body. ??? Fluid from the abdomen fills the scrotum. Normally, the testicles develop in the abdomen and then drop into the scrotum before . The tube that the testicles travel through usually closes after the testicles drop. If the tube does not close, fluid from the abdomen can fill the scrotum. This is not very common in adults. What are the causes? A hydrocele may be caused by: ??? An injury to the scrotum. ??? An infection. ??? Decreased blood flow to the scrotum. ??? Twisting of a testicle (testicular torsion). ??? A defect. ??? A tumor or cancer of the testicle. Sometimes, the cause is not known. What are the signs or symptoms? A hydrocele feels like a water-filled balloon. It may also feel heavy. Other symptoms include: ??? Swelling of the scrotum. The swelling may decrease when you lie down. You may also notice more swelling at night than in the morning. This is called a communicating hydrocele, in which the fluid in the scrotum goes back into the abdominal cavity when the position of the scrotum changes. ??? Swelling of the groin. ??? Mild discomfort in the scrotum. ??? Pain. This can develop if the hydrocele was caused by infection or twisting. The larger the hydrocele, the more likely you are to have pain. Swelling may also cause pain. How is this diagnosed? This condition may be diagnosed based on a physical exam and your medical history. You may also have tests, including: ??? Imaging tests, such as an ultrasound. ??? A transillumination test. This test takes place in a dark room where a light is placed on the skin of the scrotum. Clear liquid will not impede the light and the scrotum will be illuminated. This helps a health care provider distinguish a hydrocele from a tumor. ??? Blood or urine tests. How is this treated? Most hydroceles go away on their own. If you have no discomfort or pain, your health care provider may suggest close monitoring of your condition until the condition goes away or symptoms develop. This is called watch and wait or watchful waiting. If treatment is needed, it may include: ??? Treating an underlying condition. This may include taking an antibiotic medicine to treat an infection. ??? Having surgery to stop fluid from collecting in the scrotum. ??? Having surgery to drain the fluid. Surgery may include: ? Hydrocelectomy. For this procedure, an incision is made in the scrotum to remove the fluid. ? Needle aspiration. A needle is used to drain fluid. However, the fluid buildup will come back quickly and may lead to an infection of the scrotum. This is rarely done. Follow these instructions at home: Medicines ??? Take [id number] and prescription medicines only as told by your health care provider. ??? If you were prescribed an antibiotic medicine, take it as told by your health care provider. Do not stop taking the antibiotic even if you start to feel better. General instructions ??? Watch the hydrocele for any changes. ??? Keep all follow-up visits. This is important. Contact a health care provider if: ??? You notice any changes in the hydrocele. ??? The swelling in your scrotum or groin gets worse. ??? The hydrocele becomes red, firm, painful, or tender to the touch. ??? You have a fever. Get help right away if you: ??? Develop a lot of pain or your pain becomes worse. ??? Have chills. ??? Have a high fever. Summary ??? A hydrocele is a collection of fluid in the loose pouch of skin that holds the testicles (scrotum). ??? A hydrocele can cause swelling, discomfort, and pain. ??? In adults, the cause of a hydrocele may not be known. However, it is sometimes caused by an infection or the twisting of a testicle. ??? Hydroceles often go away on their own. If a hydrocele causes pain, treating the underlying cause may be needed to ease the pain. This information is not intended to replace advice given to you by your health care provider. Make sure you discuss any questions you have with your health care provider. Document Revised: 09/27/2021 Document Reviewed: 09/27/2021 [employer] Patient Education ? [address] [employer] [address] [facility] 10-31-2023 Hospital Discharge instructions Follow Up Care 10/31/2023 13:13:36 With:LOLY QUEZADA, SARAH Ferrer Address: [address] [place] [address] When: only if needed [facility] [place] 10-13-2023 Note [facility] Note [...] follow-up at this point Arleen Tobin MD, [facility] 09-05-2023 Note General Surgery Offi ce/Clinic Note Chief Complaint consultation for hernia HPI Staff 62 year old male presents on follow up from [facility] for left inguinal hernia. Patient presented [...] year h/o left inguinal hernia, seen in [facility] ED 08/31/23 because he was unable [...] available Problem List/ (more content not included)... [facility] Comment on above: Result Comment: Elec tronically Signed By: Josafat SALCIDO MD\.br\Date and Time Signed: 09/05/23 13:57 EDT Evaluation + Plan note No data available for this section [facility] [place] Evaluation + Plan note Future Appointments Appointment Date:11/14/2023 01:00:00 PM Scheduled Provider:Josafat SALCIDO MD Location:[facility] Appointment Type:GS Post Op 15 [facility] [place] Evaluation + Plan note Future Appointments Appointment Date:07/09/2024 01:00:00 PM Scheduled Provider:GARCIA REAGAN MD Location[place] [place] [facility] Appointment Type:URO Office Visit [facility] Evaluation note No assessment inform ation available [facility] Work Phone: Hospital Discharge instructions No data available for this section [facility] Progress note No data available for this section [facility] Summary Purpose Family History No Family History Records Found No data available for this section No Family History Records Found No data available for this section No Family History Records Found No data available for this section No data available for this section No Family History Records Found Advance Directives No Advanced Directives Records Found Advance Directive Response Recorded Date/ Time Advance Directives No September 08 2:15pm Additional Source Comments (unrecognized sect ion and content) No Status Records FoundNo Status Records FoundNo Status Records FoundNo Status Records Found INFORMATION SOURCE (unrecogn ized section and content) DATE CREATED AUTHOR 08/20/2017 [facility] DATE CREATED AUTHOR AUTHOR'S ORGANIZ ATION 10/14/2023 [facility] DATE CREATED AUTHOR AUTHOR'S ORGANIZ ATION 11/02/2023 [facility] DATE CREATED AUTHOR AUTHOR'S ORGANIZ ATION 04/18/2024 [facility] Care Teams (unrecognized sec tion and [...] BE BASED ON THE PRIMARY CLINICAL RECORDS. [facility] [employer] [facility]. provides no warranty or guarantee of the accuracy or completeness of information in this document.
== END 2024-04-30 13:49 | disposition home or self-care (01) ==
LOC: US 13:48
PROVIDERS: Visit Provider Student in an Organized Health Care Education/Training Program
DX: N43.3 Hydrocele, unspecified (principal)
CPT/HCPCS: 76870

== ENCOUNTER 2024-07-12 16:09 | Outpatient (OUT) | payer BC, SELFPAY ==
--- OUTSIDE RECORDS SUMMARY | 2024-07-12 16:34 | XMS_ITS | CCD ---
Author Organization [facility] Care Team Providers Care Freight Solicitor Name Role Phone MARKER, JUSTINA Unavailable Unavailable MARKER, JUSTINA Unavailable Unavailable REQUEST, NONE LISTED Unavailable Unavailable MARKER, JUSTINA Unavailable Unavailable NONE, XXXX Primary Care Physician ARLEEN Elena Attending Unavailable Nilbooker, MD Josafat Nichols Attending Provider Loly, Josafat Nichols Attending Unavailable NilJosafat celeste Admitting Unavailable MD GARCIA REAGAN Attending Unav ailable MD GARCIA REAGAN Admitting Unav ailable NILL, Josafat Nichols Attending Unavailable MD GARCIA REAGAN Attending Unav ailable MD GARCIA REAGAN Attending Unav ailable VICTORIANOL, Josafat Nichols Referring Unavailable NILL, Josafat Nichols Attending Unavailable NILL, Josafat Nichols Attending Unavailable NILL, Josafat Nichols Attending Unavailable Allergies Allergy Classification Reported Allergen(s) Allergy Type Date of Onset Reaction(s) Facility (7 sources) Bee/Wasp/Ant venom; Translations: [Bee Stings] Propensity to adverse reactions to substance Patient reported problems (finding) [facility] (1 source) BEE VENOM PROTEIN (HONEY BEE); Translations: [BEE VENOM PROTEIN (HONEY BEE)] Propensity to adverse reactions to drug (disorder) [facility] Repository (1 source) No Known Medication Allergies; Translations: [No Known Medication Allergies] Propensity to adverse reactions (disorder) [facility] Repository NEGATED: Highlighted row has been ruled out! (1 source) Drug allergy [facility] NEGATED: Highlighted row has been ruled out! (1 source) Drug allergy [facility] NEGATED: Highlighted row has been ruled out! (1 source) Drug allergy [facility] NEGATED: Highlighted row has been ruled out! (1 source) Drug allergy [facility] NEGATED: Highlighted row has been ruled out! (1 source) Drug allergy [facility] NEGATED: Highlighted row has been ruled out! (1 source) Drug allergy [facility] Medications Current Medications Medication Drug Class(es) Dates Sig (Normalized) Sig (Original) Tylenol (3 sources) Start: 04-16-2024 Tylenol Oral, Refills(s) 0 Start Date: 04/16/24 Status: Ordered Repeat number: 1 Start: 04-16-2024 Tylenol Oral, Refills(s) 0 Start Date: 04/16/24 Status: Ordered Ascorbic Acid (3 sources) Vitamin C Start: 04-16-2024 Vitamin C Hermilo y, Refills(s) 0 Start Date: 04/16/24 Status: Ordered Repeat number: 1 Start: 04-16-2024 Vitamin C Hermilo y, Refills(s) 0 Start Date: 04/16/24 Status: Ordered Multi Vitamin+ (3 sources) Start: 04-16-2024 Multi Vitamin+ Refill(s) 0 Start Date: 04/16/24 Status: Ordered Repeat number: 1 Start: 04-16-2024 Multi Vitamin+ Refill(s) 0 Start Date: 04/16/24 Status: Ordered Problems Active Problems Problem Classification Problem Date Documented Date Episodic/Chronic Abdominal hernia (9 sources) Inguinal hernia; Translations: [Unilateral inguinal hernia, without obstruction or gangrene, not specified as recurrent] Onset: 09-05-2023 Episodic Essential hypertension (9 sources) Essential hypertension; Translations: [Essential (primary) hypertension] Onset: 09-05-2023 Chronic Genitourinary symptoms and ill-defined conditions (3 sources) Microscopic hematuria; Translations: [Other microscopic hematuria] Onset: 07-09-2024 Episodic Hyperplasia of prostate (3 sources) Benign prostatic hypertrophy without outflow obstruction; Translations: [Benign prostatic hyperplasia without lower urinary tract symptoms] Onset: 07-09-2024 Chronic Other female genital disorders (3 sources) Disorder of reproductive system 02-10-2025 Episodic Other male genital disorders (2 sources) Hydrocele of testis; Translations: [Hydrocele, unspecified] Onset: 04-16-2024 Episodic Residual codes; unclassified (4 sources) Tobacco user; Translations: [Tobacco use] Onset: 09-05-2023 Episodic Screening and history of mental health and substance abuse codes (6 sources) Tobacco use and exposure - finding 09-05-2023 Chronic Substance-related disorders (13 sources) Tobacco dependence syndrome; Translations: [Nicotine dependence, [...] Results Test Name Value Interpretation Reference Range Facility Urinalysis with Microon - Bilirubin Ql (U) Negative Normal Negative [facility] Comment on above: Performed By: #### 4 [id number] #### [facility] [address] [place] [address] Clarity (U) Clear Normal Clear [facility] Comment on above: Performed By: #### 4 [id number] #### [facility] [address] [place] [address] Color (U) Light-Yellow Normal Yellow [facility] Comment on above: Result Comment: Micr oscopic readings are only performed on those samples that meet specific criteria set forth by [facility]. Performed By: #### 4 [id number] #### [facility] [address] [place] [address] Glucose Ql (U) Negative Normal Negative [facility] Comment on above: Performed By: #### 4 [id number] #### [facility] [address] [place] [address] Hemoglobin Auto test strip (U) [Mass/Vol] 1+ mg/dL Abnormal Negative [facility] Comment on above: Performed By: #### 4 [id number] #### [facility] [address] [place] [address] Ketones Auto test strip Ql (U) Negative Normal Negative [facility] Comment on above: Performed By: #### 4 [id number] #### [facility] [address] [place] [address] Leukocyte esterase Auto test strip Ql (U) Negative Normal Negative [facility] Comment on above: Performed By: #### 4 [id number] #### [facility] [address] [place] [address] Mucus Auto Ql (U) Negative Normal Negative [facility] Comment on above: Performed By: #### 4 [id number] #### [facility] [address] [place] [address] Nitrite Auto test strip Ql (U) Negative Normal Negative [facility] Comment on above: Performed By: #### 4 [id number] #### [facility] [address] [place] [address] pH (U) 6.0 [pH] Invalid Interpretation Code 5.0-9.0 [facility] Comment on above: Performed By: #### 4 [id number] #### [facility] [address] [place] [address] Protein Ql (U) Negative Normal Negative [facility] Comment on above: Performed By: #### 4 [id number] #### [facility] [address] [place] [address] RBC Ql (U) 4-20 Abnormal 0-3 [facility] Comment on above: Performed By: #### 4 [id number] #### [facility] [address] [place] [address] Specific gravity (U) [Rel density] 1.007 Invalid Interpretation Code 1.005-1.030 [facility] Comment on above: Performed By: #### 4 [id number] #### [facility] [address] [place] [address] Urobilinogen (U) [Mass/Vol] Negative Normal Negative [facility] Comment on above: Performed By: #### 4 [id number] #### [facility] [address] [place] [address] WBC Auto (Urine sed) [#/Area] 0-5 Normal 0-5 [facility] Comment on above: Performed By: #### 4 [id number] #### [facility] [address] [place] [address] Ambulatory Visit Summaryon 0 07-09-2024 Ambulatory Visit Summary Ambulatory Visit Summary JESÚS COYLE JR :1960 Visit Date:07/09/2024 Ambulatory Visit Instructions Your Diagnosis Left hydrocele Microscopic hematuria BPH (benign prostatic hyperplasia) Smoker Your Care Team Attending Physician - GARCIA REAGAN MD Primary Care Physician - NONE, XXXX This Is Your Medications List Contact prescribing physician if questions or concerns acetaminophen (Tylenol) ascorbic acid (Vitamin C) multivitamin (Multi Vitamin+) Procedures Performed Repair of left inguinal hernia (10/22/2023), Colonoscopy. Discharge Vitals Temperature (Temporal Artery) 36.7 ???C Heart Rate (Peripheral) 83 Respiratory Rate 16 Blood Pressure 146/80 Height 65 in Height 165 cm Weight 138.891 lb Weight 63 kg BMI 23.14 What to do next Scheduled Follow-Up Appointments Friday. 2024 3:30 PM EDT Where: [facility] 2024 10:00 AM EDT Where: [facility] You Need to Schedule the Following Appointments Follow Up with MERARY QUEZADA, GARCIA, JUVENAL When: Comments: sched L hydrocelectomy Where: Medications What How Much When Instructions Unchanged acetaminophen (Tylenol) Contact prescribing physician if questions or concerns Unchanged ascorbic acid (Vitamin C) Every day Contact prescribing physician if questions or concerns Unchanged multivitamin (Multi Vitamin+) Contact prescribing physician if questions or concerns Allergies Bee Stings (Patient reported problems) No Known Medication Allergies Problems Ongoing - Any problem that you are currently receiving treatment for. BPH (benign prostatic hyperplasia) Hypertension Left hydrocele Microscopic hematuria Reducible left inguinal hernia Smoker Tobacco dependence Tobacco use Patient Survey You may receive a survey via text or e-mail asking about your office visit. Please share your experience with us by completing your survey. We appreciate your feedback and thank you for choosing us for your care. Education Materials Hydrocelectomy, Adult, Care After The following information offers guidance on how to care for yourself after your procedure. Your health care provider may also give you more specific instructions. If you have problems or questions, contact your health care provider. What can I expect after the procedure? After your procedure, it is common to have: ??? Mild discomfort and swelling in the pouch that holds your testicles (scrotum). ??? Bruising of the scrotum. Follow these instructions at home: Medicines ??? Take qcsq-ydu-czzjedr and prescription medicines only as told by your health care provider. ??? Ask your health care provider if the medicine prescribed to you: ? Requires you to avoid driving or using machinery. ? Can cause constipation. You may need to take these actions to prevent or treat constipation: ? Drink enough fluid to keep your urine pale yellow. ? Take rwup-lnp-kdrgeof or prescription medicines. ? Eat foods that are high in fiber, such as beans, whole grains, and fresh fruits and vegetables. ? Limit foods that are high in fat and processed sugars, such as fried or sweet foods. Bathing ??? Do not take baths, swim, or use a hot tub until your health care provider approves. Ask your health care provider if you may take showers. You may only be allowed to take sponge baths. ??? If you were told to wear an athletic support strap (scrotal support), keep it dry. Take it off when you shower or bathe. Incision care ??? Follow instructions from your health care provider about how to take care of your incision. Make sure you: ? Wash your hands with soap and water for at least 20 seconds before and after you change your bandage (dressing). If soap and water are not available, use hand senior accounting specialist. ? Change your dressing as told by your health care provider. ? Leave stitches (sutures), skin glue, or adhesive strips in place. These skin closures may need to stay in place for 2 weeks or longer. If adhesive strip edges start to loosen and curl up, you may trim the loose edges. Do not remove adhesive strips completely unless your health care provider tells you to do that. ??? Check your incision and scrotum every day for signs of infection. Check for: ? More redness, swelling, or pain. ? Fluid or blood. ? Warmth. ? Pus or a bad smell. Managing pain and swelling If directed, put ice on the affected area. To do this: ??? Put ice in a plastic bag. ??? Place a towel between your skin and the bag. ??? Leave the ice on for 20 minutes, 2???3 times per day. ??? Remove the ice if your skin turns bright red. This is very important. If you cannot feel pain, heat, or cold, you have a greater risk of damage to the area. Activity ??? Do not lift anything that is (more content not included)... Normal [facility] URINALYSISOrdered By: Flory Garcia on 07-09-2024 UA Spec Desc Clean Catch (07/09/24 1:34 PM) Normal [facility] [place] [place] UA Auto SS Urinalysis with Microon 06-24 Type of Urine collection method Clean Catch Normal [facility] Comment on above: Performed By: #### 4 [id number] #### [facility] [address] [place] [address] Urology Office/Clinic Noteon 07-09-2024 Urology Office/Clinic Note Urology Office/Clinic Note Chief Complaint follow up with US scrotal HPI Staff 3 month follow up w/scrotal US. US scrotal done at [facility] 05/01/24 Previous DX: left hydrocele LUIS E: 21, IPSS: 1 denies hematuria, denies dysuria. has some lower abdominal pain of the left cause of hydrocele because of fluid, denies flak pain History of Present Illness Tests reviewed: reviewed UA, scrotal US, CT scan I have reviewed the previous health record information and history for this patient from Dr. Reagan. I have reviewed and verified the staff HPI to be accurate for this encounter. Review of Systems PHQ Score Initial [...] See HPI. Physical Exam Vitals & Measurements T: 36.7 ???C(Temporal Artery) HR: 83(Peripheral) RR: 16 BP: 146/80 HT: 65 in HT: 165 cm WT: 138.891 lb WT: 63 kg BMI: 23.14 General Appearance: alert, no distress, well nourished, well developed male. Assessment/Plan Pt here with his today. LUIS E 21. 1. Left hydrocele (N43.3: Hydrocele, unspecified) CT AP w/ Con [facility] 03/29/24 - Large Lt scrotal hydrocele Scrotal US 05/01/24 [facility] - Large anechoic L hydrocele w echogenic debris present measuring 11.2 x 7.8 x 5.0 cm. S/p Lt Inguinal Herniorrhaphy w/ Dr. Salcido 09/2023. Denies any other abdominal or pelvic procedures, gross hematuria, hx of kidney stones, heart attacks or espino, not on any blood thinners. Pt feels hydrocele has gotten larger. Denies any reduction in size ever occurring. Thinks hydrocele was present prior to hernia. Discussed the options for his hydrocele. There is no absolute indication that he needs this repaired. As the fluid collection has increased in size and has become more bothersome, pt is interested in repair. This involves a scrotal incision, removing the sac of fluid, and, perhaps, removing part or all of the sac itself. There is a 10-15% chance of recurrence of this scrotal fluid collection, which may require another procedure in the future. -Will schedule Left Hydrocelectomy. The procedure risks, benefits, and treatment alternatives have been discussed with the patient. These include bleeding, infection, recurrence of fluid collection in the scrotum in 10-15%, and need for additional procedures, among others. Full informed consent has been obtained. Will order General anesthesia. 2. Microscopic hematuria (R31.29: Other microscopic hematuria) UA today shows small blood and trace leuks. Asx. -Urine sample to be sent to micro. Will call pt w results. 3. BPH (benign prostatic hyperplasia) (N40.0: Benign prostatic hyperplasia without lower urinary tract symptoms) IPSS 1. Not taking any BPH meds. No bother w urination. No PSAs on record. Pt does not think he has ever had this checked previously. Recommended pt have this done jm. Pt agrees. -PSA to be drawn IO today. Will call pt w results. 4. Smoker (F17.200: Nicotine dependence, unspecified, uncomplicated) Smoked since he was about 16 yrs old, 1 PPD. [1] Patient is a 63-year-old male who presented to me with a complex left-sided hydrocele. He had a hydrocele from before and underwent a left inguinal hernia surgery. Ultrasound shows an anechoic complex fluid collection in the left hemiscrotum. On examination it does transilluminate. We will proceed with a left hydrocelectomy. Risk, benefits and alternatives were discussed in extensive detail with him and we will book it as such. He will need presurgical testing. Follow-up With When Contact Information MERARY QUEZADA, GARCIA, SUJATAL Additional Instructions: sched L hydrocelectomy Patient Education Hydrocelectomy, Adult, Care After Hydrocelectomy, Adult I, Savi Stewart, personally scribed for Dr. Reagan on 07/09/2024 13:30:29. . Portions of this record may have been created with voice recognition artificial intelligence software, specifically No Paper Just Vapor, ITYZ and or ClasesD. Substitutions may have occurred due to the inherent limitations of voice recognition and artificial intelligence software. Documentation recorded by the scribeSavi, accurately reflects the services(s) I performed and decisions made by me. Authenticated by Dr. Reagan on 07/09/2024 13:54:24. Problem List/Past Medical History Ongoing BPH (benign prostatic hyperplasia) Hypertension Left hydrocele Microscopic hematuria Reducible left inguinal hernia Smoker Tobacco depen (more content not included)... Normal [facility] Comment on above: Result Comment: Elec tronically Signed By: NKGARCIA SKY MD\.br\Date and Time Signed: 07/09/24 13:55 EDT\.br\Electronically Co-Signed By: Savi Stewart\.br\Date and Time Co-Signed: 07/09/24 13:31 EDT Ambulatory Visit Summaryon 0 04-16-2024 Ambulatory Visit Summary Ambulatory Visit Summary JESÚS COYLE JR :1960 Visit Date:04/16/2024 Ambulatory Visit Instructions Your [...] GARCIA REAGAN MD Where: [facility] [address] [place] [address]- You Need to Schedule the Following Appointments [...] Medicines ? (more content not included)... Normal [facility] Ambulatory Visit Summaryon 0 11-14-2023 Ambulatory Visit [...] for choosing us for your care. Normal [facility] General Surgery Office/Clini c Noteon 11-14-2023 General [...] Follow-up With When Contact Information LOLY QUEZADA, SARAH Ferrer Only if needed [address] [place] [address]- Additional Instructions: Problem List/Past Medical [...] History Diabetes mellitus type 2: Mother. Normal [facility] Comment on above: Result Comment: Elec tronically Signed By: LOLY QUEZADA, Josafat [place]\Date and Time Signed: 11/14/23 [...] Family History Diabetes mellitus type 2: Mother. [facility] Comment on above: Result Comment: Elec tronically Signed By: LOLY QUEZADA, Josafat Nichols\.br\Date and Time Signed: 10/31/23 13:56 EDT Provider Letteron 10-31-2023 Provider Letter Provider Letter October 31, 2023 JESÚS COYLE [address] [place] [id number] : 1960 To Whom It May Concern, The above named person may return to work 11/03/23 with a 10 pound weight restriction until 11/19/23. Sincerely, Dr. Josafat Salcido MD General Surgery [facility] Charli 10-22-2023 L Specimen: [id number] Received: 10/23/23 Status: DARRYL Ronquillo Num: [id number] Spec Type: Surgical Subm Dr: Josafat Salcido MD FACS Tissues: A Hernia Sac (LT ING ZANE) Procedures: HE, Gross/Micro L2 Age/ Patient Sex Location Account Attending Physician Jesús Coyle Jr 62/M LABELL [id number] Josafat Salcido MD FACS SPEC NUM: [id number] RECD: 10/23/23 STATUS: DARRYL RONQUILLO NUM: [id number] NOEL: 10/22/23-[address]: Josafat Salcido MD FACS ENTERED: 10/23/23-[address] [facility] [facility] [facility] [address]: Tamar,Wayne SPEC TYPE: Surgical DEPT: KIM SMITH ENTERED BY: [id number] RECV BY: [id number] ORDERED: MARCELA, Gross/Micro L2 ORDERED: MARCELA, Gross/Micro L2 Pathological Diagnosis Left groin soft [...] performed supporting the above interpretation -------- Specimen: [id number] Received: 10/23/23 Status: DARRYL Fieldtorrey Num: [id number] Spec Type: Surgical Subm Dr: Josafat Salcido MD FACS Tissues: A Hernia Sac (LT ING ZANE) Procedures: Lizett MEDRANO/Alessandra L2 -------- Patient: Jesús Coyle Jr [id number] (Continued) -------- Specimen: [id number] Received: 10/23/23 (Continued) Signed (signature on file) Antonio Christiansen MD 10/31/23 0949 -------- Specimen: [id number] Received: 10/23/23 Status: DARRYL Yg Num: [id number] Spec Type: Surgical Subm Dr: Josafat Salcido MD FACS Tissues: A Hernia Sac ( ING ZANE) Procedures: Lizett MEDRANO/Alessandra L2 -------- Patient: Jesús Coyle Jr [id number] (Continued) -------- Specimen: [id number] Received: 10/23/23 (Continued) CPT Codes 47584 -------- -------- Specimen: [id number] Received: 10/23/23-0864 Status: DARRYL [place] Num: [id number] Spec Type: Surgical Subm Dr: Josafat Salcido MD FACS Tissues: A Hernia Sac (LT ING ZANE) Procedures: Lizett MEDRANO/Alessandra L2 -------- Patient: Jesús Coyle Jr [id number] (Continued) -------- Signed (signature on file) Atnonio Christiansen MD 10/31/23 7943 [facility] Office Visiton 10-13-2023 Follow-up visit [id number] Jairo Coyle Jr. 1960 M Date Provider Department Center 10/13/2023 BILLIE BROWNSERA TREVIZO LORENA Jacobs Family History Problem Relation Age of Onset No Known Problems Mother No Known Problems Father Family Status - Relation Status Age at Mother Father Level of Service:22359 IN OFFICE/OUTPATIENT NEW MODERATE MDM 45 MINUTES Reason for Visit and Comments: New Patient [632] - Pt is a new patient, and is here for surgery clearance, had EKG last week. [facility] Ambulatory Visit Summaryon 0 09-05-2023 Ambulatory Visit Summary Ambulatory Visit Summary JESÚS COYLE JR Radha :1960 Visit Date:09/05/2023 Ambulatory Visit Instructions Your [...] you for choosing us for your care. [facility] Vital Signs Date Time Vital Sign Value Performing Clinician Facility 07-09-2024 13:14-0400 Diastolic blood pressure 80 mm[Hg] GARCIA NKANSAH-AMANKRA [facility] 07-09-2024 13:14-0400 Mean blood pressure 102 mm[Hg] GARCIA NKANSAH-AMANKRA [facility] 07-09-2024 13:14-0400 Systolic blood pressure 146 mm[Hg] GARCIA NKANSAH-AMANKRA [facility] 07-09-2024 13:07-0400 Body temperature 98.06 [degF] GARCIA NKANSAH-AMANKRA [facility] 07-09-2024 13:07-0400 Diastolic blood pressure 95 mm[Hg] GARCIA NKANSAH-AMANKRA [facility] 07-09-2024 13:07-0400 Heart rate 83 /min GARCIA NKANSAH-AMANKRA [facility] 07-09-2024 13:07-0400 Respiratory rate 16 /min GARCIA NKANSAH-AMANKRA [facility] 07-09-2024 13:07-0400 Systolic blood pressure 154 mm[Hg] GARCIA NKANSAH-AMANKRA [facility] 04-16-2024 14:12-0500 Diastolic blood pressure 60 mm[Hg] GARCIA NKANSAH-AMANKRA [facility] 04-16-2024 14:12-0500 Heart rate 98 /min GARCIA NKANSAH-AMANKRA [facility] 04-16-2024 14:12-0500 Respiratory rate 16 /min GARCIA NKANSAH-AMANKRA [facility] 04-16-2024 14:12-0500 Systolic blood pressure 100 mm[Hg] GARCIA NKANSAH-AMANKRA [facility] 09-05-2023 13:07-0400 Blood Pressure Location [facility] 09-05-2023 13:07-0400 Diastolic blood pressure 82 mm[Hg] Josafat NILL [facility] 09-05-2023 13:07-0400 Heart rate 73 /min Josafat NILL [facility] 09-05-2023 13:07-0400 Respiratory rate 16 /min Josafat NILL [facility] 09-05-2023 13:07-0400 Systolic blood pressure 165 mm[Hg] Josafat NILL [facility] Encounters Encounter Date Encounter Type Care Provider Facility Start: 07-09-2024 End: 07-09-2024 Lab Drop off GARCIA REAGAN [facility] Start: 07-09-2024 End: 07-09-2024 ambulatory MD GARCIA REAGAN Facility:[facility] [place] [place] Start: 07-09-2024 End: 07-09-2024 Patient encounter procedure GARCIA REAGAN [facility] Start: 04-16-2024 End: 04-16-2024 ambulatory MD GARCIA REAGAN Facility: [facility] Start: 04-16-2024 End: 04-16-2024 Patient encounter procedure GARCIA REAGAN [facility] Start: 04-09-2024 ambulatory MD GARCIA REAGAN Facility:[facility] Start: 11-14-2023 End: 11-14-2023 ambulatory Josafat SALCIDO Facility:[facility] Start: 11-14-2023 End: 11-14-2023 Patient encounter procedure Josafat R NILL [facility] [place] Start: 10-31-2023 End: 10-31-2023 ambulatory Josafat R VICTORIANOL Facility: [place] Start: 10-31-2023 End: 10-31-2023 Patient encounter procedure Josafat R NILL [facility] [place] Start: 10-22-2023 End: 10-22-2023 ambulatory Josafat R Loly [facility] Work Phone: Start: 10-22-2023 End: 10-22-2023 Departed Referred MD Josafat Salcido Work Phone: [facility] Start: 10-22-2023 End: 10-22-2023 ambulatory Josafat Magdalena VICTORIANOL Facility:CD:[id number] Start: 10-13-2023 End: 10-13-2023 ambulatory [facility] Start: 10-13-2023 End: 10-13-2023 Encounter for other preprocedural examination [facility] Start: 09-05-2023 End: 09-05-2023 ambulatory Josafat PASTRANAL Facility: [place] Start: 09-05-2023 End: 09-05-2023 Patient encounter procedure Josafat R NILL [facility] [place] Start: 09-01-2023 ambulatory MD GARCIA REAGAN Facility:[facility] Start: 09-02-2016 End: 09-02-2016 Ambulatory JUSTINA MARKER Facility:[facility] Procedures Date Procedure Procedure Detail Performing Clinician Start: 10-22-2023 Repair of left ingui nal hernia Josafat SALCIDO Colonoscopy Josafat SALCIDO Payers Date Payer Category Payer Self-pay [id number] 2023 Unknown [id number] 2022 Unknown [id number] 1960 Unknown [id number] 2.16.8 [id number] 1960 Unknown [id number] 2.16.8 [id number] 1960 Unknown [id number] 2.16.8 [id number] 1960 Unknown [id number] 2.16.8 [id number] 1960 Unknown [id number] 2.16.8 [id number] 1960 Unknown [id number] 2.16.8 [id number] 1960 Unknown [id number] 2.16.8 [id number] 1959 Unknown [id number] Unknown [id number] 2.16.8 [id number] Social History Date Type Detail Facility Start: 09-05-2023 End: 07-09-2024 Tobacco smoking status Heavy tobacco smoker (finding) [facility] Tobacco smoking status Never [facility] [place] Sex Assigned At Male [facility] Start: 1960 Sex Assigned At Male [facility] Tobacco smoking status Smoker (finding) [facility] Sexual Orientation [facility] Sex Male (finding) [facility] Functional Status Date Assessment Result Facility 07-09-2024 Functional Status N/A [facility] 04-16-2024 Functional Status N/A [facility] 09-05-2023 Functional Status N/A [facility] [place] Clinical Notes 09-05-2023 to 07-09-2024 Note Date & Type Note Facility 07-09-2024 Hospital Discharge instructions Patient Education 07/09/2024 13:18:16 Hydrocelectomy, Adult, Care After Hydrocelectomy, Adult, Care After The following information offers guidance on how to care for yourself after your procedure. Your health care provider may also give you more specific instructions. If you have problems or questions, contact your health care provider. What can I expect after the procedure? After your procedure, it is common to have: Mild discomfort and swelling in the pouch that holds your testicles (scrotum). Bruising of the scrotum. Follow these instructions at home: Medicines Take nwzg-cbn-bbxzale and prescription medicines only as told by your health care provider. Ask your health care provider if the medicine prescribed to you: ?Requires you to avoid driving or using machinery. ?Can cause constipation. You may need to take these actions to prevent or treat constipation: ?Drink enough fluid to keep your urine pale yellow. ?Take uoqf-oyf-ozdpoyz or prescription medicines. ?Eat foods that are high in fiber, such as beans, whole grains, and fresh fruits and vegetables. ?Limit foods that are high in fat and processed sugars, such as fried or sweet foods. Bathing Do not take baths, swim, or use a hot tub until your health care provider approves. Ask your health care provider if you may take showers. You may only be allowed to take sponge baths. If you were told to wear an athletic support strap (scrotal support), keep it dry. Take it off when you shower or bathe. Incision care Follow instructions from your health care provider about how to take care of your incision. Make sure you: ?Wash your hands with soap and water for at least 20 seconds before and after you change your bandage (dressing). If soap and water are not available, use hand senior accounting specialist. ?Change your dressing as told by your health care provider. ?Leave stitches (sutures), skin glue, or adhesive strips in place. These skin closures may need to stay in place for 2 weeks or longer. If adhesive strip edges start to loosen and curl up, you may trim the loose edges. Do not remove adhesive strips completely unless your health care provider tells you to do that. Check your incision and scrotum every day for signs of infection. Check for: ?More redness, swelling, or pain. ?Fluid or blood. ?Warmth. ?Pus or a bad smell. Managing pain and swelling If directed, put ice on the affected area. To do this: Put ice in a plastic bag. Place a towel between your skin and the bag. Leave the ice on for 20 minutes, 2 3 times per day. Remove the ice if your skin turns bright red. This is very important. If you cannot feel pain, heat, or cold, you have a greater risk of damage to the area. Activity Do not lift anything that is heavier than 10 lb (4.5 kg) until your health care provider says that it is safe. If you were given a sedative during the procedure, it can affect you for several hours. Do not drive or operate machinery until your health care provider says that it is safe. Ask your health care provider when it is safe to drive. Return to your normal activities as told by your health care provider. Ask your health care provider what activities are safe for you. General instructions Do not use any products that contain nicotine or tobacco. These products include cigarettes, chewing tobacco, and vaping devices, such as e-cigarettes. These can delay healing after surgery. If you need help quitting, ask your health care provider. If you were given a scrotal support, wear it as told by your health care provider. Keep all follow-up visits. This is important. If you had a drain put in during the procedure, you will need to have it removed at a follow-up visit. Contact a health care provider if: Your pain is not controlled with medicine. You have more redness, swelling, or pain around your scrotum. You have fluid or blood coming from your incision. Your incision feels warm to the touch. You have pus or a bad smell coming from your incision. You have a fever. Get help right away if: You develop shaking, chills, and a fever that is higher than 101.8 F (38.8 C). You have redness or swelling that starts at your scrotum and spreads outward to your whole groin. You develop swelling in your legs. You have difficulty breathing. These symptoms may be an emergency. Get help right away. Call 911. Do not wait to see if the symptoms will go away. Do not drive yourself to the hospital. Summary After a hydrocelectomy, it is common to have mild discomfort, swelling, and bruising. Do not take baths, swim, or use a hot tub until your health care provider approves. Ask your health care provider if you may take showers. If directed, put ice on the affected area to help with pain and swelling. Do not lift anything that is heavier than 10 lb (4.5 kg) until your health care provider says that it is safe. Return to your normal activities as told by your health care provider. If you were given a scrotal support, keep it dry. Wear the scrotal support as told by your health care provider. This information is not intended to replace advice given to you by your health care provider. Make sure you discuss any questions you have with your health care provider. Document Revised: 09/27/2021 Document Reviewed: 09/27/2021 [employer] Patient Education 2023 [employer]. 07/09/2024 13:18:14 Hydrocelectomy, Adult Hydrocelectomy, Adult A hydrocelectomy is a surgical procedure to remove a collection of fluid (hydrocele) from the scrotum. The scrotum is the pouch that holds the testicles. You may need to have this procedure if a hydrocele is causing painful swelling in your scrotum. Tell a health care provider about: Any allergies you have. All medicines you are taking, including vitamins, herbs, eye drops, creams, and cjxe-cxv-gkbyuij medicines. Any problems you or family members have had with anesthetic medicines. Any bleeding problems you have. Any surgeries you have had. Any medical conditions you have. What are the risks? Generally, this is a safe procedure. However, problems may occur, including: Bleeding into the scrotum (scrotal hematoma). Damage to nearby structures or organs, including to the testicle or the tube that carries sperm out of the testicle (vas deferens). Infection. Allergic reactions to medicines. What happens before the procedure? When to stop eating and drinking Follow instructions from your health care provider about what you may eat and drink before your procedure. These may include: 8 hours before your procedure ?Stop eating most foods. Do not eat meat, fried foods, or fatty foods. ?Eat only light foods, such as toast or crackers. ?All liquids are okay except energy drinks and alcohol. 6 hours before your procedure ?Stop eating. ?Drink only clear liquids, such as water, clear fruit juice, black coffee, plain tea, and sports drinks. ?Do not drink energy drinks or alcohol. 2 hours before your procedure ?Stop drinking all liquids. ?You may be allowed to take medicines with small sips of water. If you do not follow your health care provider's instructions, your procedure may be delayed or canceled. Medicines Ask your health care provider about: Changing or stopping your regular medicines. This is especially important if you are taking diabetes medicines or blood thinners. Taking medicines such as aspirin and ibuprofen. These medicines can thin your blood. Do not take these medicines unless your health care provider tells you to take them. Taking nxoz-mzi-kxkwbpm medicines, vitamins, herbs, and supplements. Surgery safety Ask your health care provider: How your surgery site will be marked. What steps will be taken to help prevent infection. These steps may include: ?Removing hair at the surgery site. ?Washing skin with a germ-killing soap. ?Taking antibiotic medicine. General instructions Do not use any products that contain nicotine or tobacco for at least 4 weeks before the procedure. These products include cigarettes, chewing tobacco, and vaping devices, such as e-cigarettes. If you need help quitting, ask your health care provider. If you will be going home right after the procedure, plan to have a responsible adult: ?Take you home from the hospital or clinic. You will not be allowed to drive. ? Care for you for the time you are told. What happens during the procedure? An IV will be inserted into one of your veins. You will be given one or both of the following: ?A medicine to make you relax (sedative). ?A medicine to make you fall asleep (general anesthetic). A small incision will be made through the skin of your scrotum. Your testicle and the hydrocele will be located, and the hydrocele sac will be opened with an incision. The fluid will be drained from the hydrocele. Part of the hydrocele sac may be removed. The hydrocele will be closed with stitches that dissolve (absorbable sutures). This prevents fluid from building up again. If your hydrocele is large, you may have a thin, rubber drain placed to allow fluid to drain after the procedure. The incision in your scrotum will be closed with absorbable sutures, skin glue, or adhesive strips. A bandage (dressing) will be placed over the incision. The dressing may be held in place with an athletic support strap (scrotal support). The procedure may vary among health care providers and hospitals. What happens after the procedure? Your blood pressure, heart rate, breathing rate, and blood oxygen level will be monitored until you leave the hospital or clinic. You will be given pain medicine as needed. Your IV will be removed, and your insertion site will be checked for bleeding. You may need to wear a scrotal support. This holds the dressing in place and supports your scrotum. If you were given a sedative during the procedure, it can affect you for several hours. Do not drive or operate machinery until your health care provider says that it is safe. Summary A hydrocelectomy is a surgical procedure to remove a collection of fluid from the scrotum. You may need to have this procedure if a hydrocele is causing painful swelling in your scrotum. During the procedure, the hydrocele will be drained and then closed with stitches that dissolve (absorbable sutures). This prevents fluid from building up again. If your hydrocele is large, you may have a thin, rubber drain placed to allow fluid to drain after the procedure. You may need to wear a scrotal support after your procedure. This holds the dressing in place and supports your scrotum. This information is not intended to replace advice given to you by your health care provider. Make sure you discuss any questions you have with your health care provider. Document Revised: 09/27/2021 Document Reviewed: 09/27/2021 [email or web address] Patient Education 2023 [employer] Follow Up Care 04/16/2024 14:28:35 With:GARCIA REAGAN MD, URL Address: When: Unknown Comments:goldy Celeste hydrocelectomy [facility] 07-09-2024 Note Patient Education Urology Hydrocelectomy, Adult, Care After The following information offers guidance on how to care for yourself after your procedure. Your health care provider may also give you more specific instructions. If you have problems or questions, contact your health care provider. What can I expect after the procedure? After your procedure, it is common to have: ??? Mild discomfort and swelling in the pouch that holds your testicles (scrotum). ??? Bruising of the scrotum. Follow these instructions at home: Medicines ??? Take ryzw-ncr-frzrtkz and prescription medicines only as told by your health care provider. ??? Ask your health care provider if the medicine prescribed to you: ? Requires you to avoid driving or using machinery. ? Can cause constipation. You may need to take these actions to prevent or treat constipation: ? Drink enough fluid to keep your urine pale yellow. ? Take tlpo-xvv-uxftdcu or prescription medicines. ? Eat foods that are high in fiber, such as beans, whole grains, and fresh fruits and vegetables. ? Limit foods that are high in fat and processed sugars, such as fried or sweet foods. Bathing ??? Do not take baths, swim, or use a hot tub until your health care provider approves. Ask your health care provider if you may take showers. You may only be allowed to take sponge baths. ??? If you were told to wear an athletic support strap (scrotal support), keep it dry. Take it off when you shower or bathe. Incision care ??? Follow instructions from your health care provider about how to take care of your incision. Make sure you: ? Wash your hands with soap and water for at least 20 seconds before and after you change your bandage (dressing). If soap and water are not available, use hand senior accounting specialist. ? Change your dressing as told by your health care provider. ? Leave stitches (sutures), skin glue, or adhesive strips in place. These skin closures may need to stay in place for 2 weeks or longer. If adhesive strip edges start to loosen and curl up, you may trim the loose edges. Do not remove adhesive strips completely unless your health care provider tells you to do that. ??? Check your incision and scrotum every day for signs of infection. Check for: ? More redness, swelling, or pain. ? Fluid or blood. ? Warmth. ? Pus or a bad smell. Managing pain and swelling If directed, put ice on the affected area. To do this: ??? Put ice in a plastic bag. ??? Place a towel between your skin and the bag. ??? Leave the ice on for 20 minutes, 2?3 times per day. ??? Remove the ice if your skin turns bright red. This is very important. If you cannot feel pain, heat, or cold, you have a greater risk of damage to the area. Activity ??? Do not lift anything that is heavier than 10 lb (4.5 kg) until your health care provider says that it is safe. ??? If you were given a sedative during the procedure, it can affect you for several hours. Do not drive or operate machinery until your health care provider says that it is safe. ??? Ask your health care provider when it is safe to drive. ??? Return to your normal activities as told by your health care provider. Ask your health care provider what activities are safe for you. General instructions ??? Do not use any products that contain nicotine or tobacco. These products include cigarettes, chewing tobacco, and vaping devices, such as e-cigarettes. These can delay healing after surgery. If you need help quitting, ask your health care provider. ??? If you were given a scrotal support, wear it as told by your health care provider. ??? Keep all follow-up visits. This is important. If you had a drain put in during the procedure, you will need to have it removed at a follow-up visit. Contact a health care provider if: ??? Your pain is not controlled with medicine. ??? You have more redness, swelling, or pain around your scrotum. ??? You have fluid or blood coming from your incision. ??? Your incision feels warm to the touch. ??? You have pus or a bad smell coming from your incision. ??? You have a fever. Get help right away if: ??? You develop shaking, chills, and a fever that is higher than 101.8?F (38.8?C). ??? You have redness or swelling that starts at your scrotum and spreads outward to your whole groin. ??? You develop swelling in your legs. ??? You have difficulty breathing. These symptoms may be an emergency. Get help right away. Call 911. ??? Do not wait to see if the symptoms will go away. ??? Do not drive yourself to the hospital. Summary ??? After a hydrocelectomy, it is common to have mild discomfort, swelling, and bruising. ??? Do not take baths, swim, or use a hot tub until your health care provider approves. Ask your health care provider if you may take showers. ??? If directed, put ice on the affected area to help with pain and swelling. ??? Do not (more content not included)... [facility] 04-16-2024 Hospital Discharge instructions Patient Education 04/16/2024 [...] Follow these instructions at home: Medicines Take dydu-kqr-dfptxsh and prescription medicines only as told by [...] provider. Document Revised: 09/27/2021 Document Reviewed: 09/27/2021 [employer] Patient Education 2023 [employer] Follow Up Care 04/09/2024 14:01:19 With:MERARY QUEZADA, JUVENAL ZELAYA Address: When:Within 3 Month(s) Comments:w/Scrotal US [facility] 04-16-2024 Note Urology Office/Clini c Note Chief Complaint Referral HPI Staff New Pt. Referral per Dr. Salcido due to hydrocele CT SCAN-Tamar 3 weeks ago IPSS 4 History of [...] With When Contact Information GARCIA REAGAN MD, JUVENAL In 3 months Additional Instructions: w/Scrotal US Patient Education Hydrocele, Adult I, Milvia Jacob, personally scribed for Dr. Reagan on 04/16/2024 14:27:14. . Portions of this record may have been created with voice recognition artificial intelligence software, specifically [employer], ITY[employer] and or [employer]. Substitutions may have occurred due to the inherent limitations of voice recognition and artificial intelligence software. Documentation recorded by the scribe, Milvia Jacob, accurately reflects the services(s) I performed and decisions made by me. Authenticated by Dr. Reagan on 04/16/2024 14:35:03. Problem List/Past Medical History Ongoing Hypertension Left hydrocele Reducible left inguinal hernia Smoker Tobacco dependence Tobacco use Historical No qualifying data Procedure/Surgical History (more content not included)... [facility] Comment on above: Result Comment: Elec [...] these instructions at home: Medicines ??? Take mldj-mpi-tnbulaz and prescription medicines only as told by [...] provider. Document Revised: 09/27/2021 Document Reviewed: 09/27/2021 [email or web address] Patient Education ? 2023 [employer] [facility] 10-31-2023 Hospital Discharge instructions Follow Up Care 10/31/2023 13:13:36 With:LOLY QUEZADA, SARAH Ferrer Address: [address] [place], [place] [id number] When: only if needed [facility] [place] 10-13-2023 Note [place] [facility] Note Reason for cardiology [...] follow-up at this point Arleen Tobin MD, [facility] 09-05-2023 Note General Surgery Offi ce/Clinic Note Chief Complaint consultation for hernia HPI Staff 62 year old male presents on follow up from [facility] for left inguinal hernia. Patient presented [...] year h/o left inguinal hernia, seen in [facility] ED 08/31/23 because he was unable to [...] available Problem List/ (more content not included)... [facility] Comment on above: Result Comment: Elec tronically Signed By: Josafat SALCIDO MD\.br\Date and Time Signed: 09/05/23 13:57 EDT Evaluation + Plan note No data available for this section [facility] [place] Evaluation + Plan note Future Appointments Appointment Date:11/14/2023 01:00:00 PM Scheduled Provider:Josafat SALCIDO MD Location:[facility] Appointment Type:GS Post Op 15 [facility] [place] Evaluation + Plan note Future Appointments Appointment Date:07/09/2024 01:00:00 PM Scheduled Provider:GARCIA REAGAN MD Location:[facility] Appointment Type:URO Office Visit [facility] Evaluation + Plan note Future Appointments Appointment Date:07/16/2024 03:30:00 PM Scheduled Provider: Location:[facility] Appointment Type:Surgical PAT FT Appointment Date:07/22/2024 10:00:00 AM Scheduled Provider: Location:[facility] Appointment Type:Surgery FT Diagnostic Tests PendingPSA Free & Total 07/09/24 [facility] Evaluation + Plan note Future Appointments Appointment Date:07/16/2024 03:30:00 PM Scheduled Provider: Location:[facility] Appointment Type:Surgical PAT FT Appointment Date:07/22/2024 10:00:00 AM Scheduled Provider: Location:[facility] Appointment Type:Surgery FT [facility] Evaluation note No assessment inform ation available [facility] Work Phone: Hospital Discharge instructions No data available for this section [facility] [place] Progress note No data available for this section [facility] [place] Summary Purpose Family History No Family History Records Found No data available for this section No Family History Records Found No data available for this section No Family History Records Found No data available for this section No data available for this section No data available for this section No data available for this section No Family History Records FoundNo Family History Records Found Advance Directives No Advanced Directives Records Found Advance Directive Response Recorded Date/ Time Advance Directives No September 08 2:15pm Additional Source Comments (unrecognized sect ion and content) No Status Records FoundNo Status Records FoundNo Status Records FoundNo Status Records FoundNo Status Records Found INFORMATION SOURCE (unrecogn ized section and content) DATE CREATED AUTHOR 08/20/2017 [facility] DATE CREATED AUTHOR AUTHOR'S ORGANIZ ATION 10/14/2023 [facility] DATE CREATED AUTHOR AUTHOR'S ORGANIZ ATION 11/02/[address] [facility] DATE CREATED AUTHOR AUTHOR'S ORGANIZ ATION 07/10/2024 [facility] DATE CREATED AUTHOR AUTHOR'S ORGANIZ ATION 07/11/2024 [facility] Care Teams (unrecognized sec tion and [...] BE BASED ON THE PRIMARY CLINICAL RECORDS. [facility] [employer] [facility]. provides no warranty or guarantee of the accuracy or completeness of information in this document.
[2024-07-14 04:08] LABS: PSA, Free 0.38 ng/mL; Prostate Specific Ag 2.4 ng/mL (0.0-4.0)
== END 2024-07-12 16:10 | disposition home or self-care (01) ==
LOC: LAB 16:10
PROVIDERS: Visit Provider Student in an Organized Health Care Education/Training Program
DX: N40.0 Benign prostatic hyperplasia without lower urinary tract symptoms (principal)
CPT/HCPCS: 36415; 84153; 84154